=== PATIENT | male | born 1970 | race Caucasian/White ===

== ENCOUNTER 2025-06-26 21:05 | Emergency (ER) | payer MEDICAID ==
[~2025-06-26] VITALS: Ht 167.6 cm; Wt 69.2 kg
[2025-06-26 21:14] VITALS: BP 135/65; PULSE 111; RESP 15; TEMP 97.6; O2SAT 99
[2025-06-27] MEDS ORDERED: SULF1TAB49 PO (15:11)
== END 2025-06-26 21:53 | disposition left against medical advice (07) ==
LOC: ER 21:07
DX: M25.522 Pain in left elbow (principal); Z53.21 Procedure and treatment not carried out due to patient leaving prior to being seen by health care provider

== ENCOUNTER 2025-06-27 12:09 | Emergency (ER) | payer MEDICAID ==
[~2025-06-27] VITALS: Ht 152.4 cm; Wt 85.8 kg
[2025-06-27 12:14] VITALS: TEMP 98.6
--- NOTE | 2025-06-27 12:38 | Physician Documentation ---
History of Present Illness ~ Chief Complaint: Arm Pain Stated Complaint: ARM PAIN Time Seen by MD: 12:38 HPI Short male presents in the emergency department for evaluation of left arm swelling with redness x2 days. Reports that he was at the gym unit utilizing some of the weight equipment when he scratched his arm on a piece of equipment since that time his arm has become swollen and red and progressively over time. Denies fevers or any other constitutional symptoms at this time but does report that the swelling and redness are worse than they were last night and this morning. Recent denies any other significant past medical history and medications at the time Tetanus within 5 years: No Medication Reconciliation Allergies: Coded Allergies: promethazine (Verified Allergy, Unknown, 06/26/25) Review of Systems ROS As stated above in the HPI, otherwise all systems are reviewed and negative. Physical Exam Vital Signs: Temperature: 98.6, Source: Oral, Heart Rate: 101, Respiratory Rate: 16, BP: 137/92, Pulse Oximetry: 98, Weight: 85.800 Oxygen Flow Rate: 0 Physical Exam VITALS: Reviewed and as above. GENERAL: Alert, no apparent distress. 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 (Omnipaque-3 (06/27/25 12:57) Ua With Microscopic (06/27/25 13:29) Vital Signs 06/27/25 06/27/25 06/27/25 12:14 13:27 14:56 Temp 98.6 Pulse 101 84 81 Resp 16 16 16 B/P (MAP) 137/92 166/93 (117) 146/79 (101) Pulse Ox 98 96 99 O2 Flow Rate 0 0 0 Laboratory Tests Test 06/27/25 12:54 06/27/25 13:29 White Blood Count 16.1 H Red Blood Count 4.49 L Hemoglobin 14.4 Hematocrit 41.4 L Mean Corpuscular Volume 92.1 Mean Corpuscular Hemoglobin 32.0 H Mean Corpuscular Hemoglobin Concent 34.8 Red Cell Distribution Width 15.0 H Platelet Count 223 Mean Platelet Volume 7.5 Neutrophils (%) (Auto) 68.5 Lymphocytes (%) (Auto) 19.4 L Monocytes (%) (Auto) 10.6 Eosinophils (%) (Auto) 0.9 Basophils (%) (Auto) 0.6 Neutrophils # (Auto) 11.0 H Lymphocytes # (Auto) 3.1 Monocytes # (Auto) 1.7 H Eosinophils # (Auto) 0.1 Basophils # (Auto) 0.1 CBC Comment Sodium Level 133 L Potassium Level 3.6 Chloride Level 100 Carbon Dioxide Level 29.1 Anion Gap 4 L Blood Urea Nitrogen 10 Creatinine 0.84 Estimated GFR/1.73 m2 > 90 BUN/Creatinine Ratio 11.9 Glucose Level 132 H Lactic Acid Level 0.8 Calcium Level 8.3 L Total Bilirubin 0.7 Aspartate Amino Transf (AST/SGOT) 30 Alanine Aminotransferase (ALT/SGPT) 48 Alkaline Phosphatase 67 Total Protein 6.5 Albumin 3.3 L Globulin 3.2 Albumin/Globulin Ratio 1.0 L Chemistry Comments Urine Specimen Description Cln catch midstream Urine Color Yellow Urine Clarity Clear Urine pH 8.0 Urine Specific [place] 1.015 Urine Protein Negative Urine Glucose (UA) Negative Urine Ketones Negative Urine Occult Blood Small Urine Nitrite Negative Urine Bilirubin Negative Urine Urobilinogen 1.0 Urine Leukocyte Esterase Trace H Urine RBC 20-50 Urine WBC 5-10 H Urine Squamous Epithelial Cells Moderate Urine Transitional Epithelial Cells Moderate Urine Bacteria Few Volume Urine Centrifuged 10 ml Urine Comment Medical Decision Making Findings This patient presents with initial presentation of local erythema, warmth, swelling concerning for cellulitis. Sensitivity/pain to light touch around the erythematous area. No lymphangitic spread visible and no fluid pockets or fluctuance concerning for abscess noted. Low concern for osteomyelitis or DVT. No immune compromise, bullae, pain out of proportion, or rapid progression concerning for necrotizing fasciitis. Patient to be discharged home with Bactrim with follow up with their PMD return to [facility] department if there is any worsening of current symptoms or any additional concerning symptoms present. Cellulitis confirmed via CT Departure Disposition: HOME / SELF CARE / HOMELESS Impression: Primary Impression: Cellulitis Discharge Instructions: Cellulitis, Adult Additional Instructions: Residing for cellulitis of your left arm. We have prescribed 2 antibiotics placed a goes antibiotics until they are gone. And I wrote him in as needed for discomfort elevate the arm as needed. Please follow-up with your primary care provider as soon as possible. He is return to the emergency department if you have any worsening of symptoms fevers present additional swelling or any other additional concerning symptoms. Referrals: NO PRIMARY CARE PROVIDER (PCP) Prescriptions Sulfamethoxazole/Trimethoprim (Bactrim Ds Tablet) 800 Mg-160 Mg Tablet 1 TAB PO Q12H for Cellulitis for 10 Days, #20 TAB Prov: ELADIO FORTE 06/27/25 Education Educated: Patient Educated regarding: treatment, need for follow up ELADIO FORTE Jun 27, 2025 12:38
[2025-06-27] MEDS ORDERED: iohexol 300mg/ml 100ml inj. ONE (12:57)
[2025-06-27 13:01] LABS: MEAN PLATELET VOLUME 7.5 FL (7.4-10.4); RED CELL DISTRIBUTION WIDTH 15.0 % (11.5-14.5)
[2025-06-27 13:25] LABS: CREATININE 0.84 MG/DL (0.60-1.10); TOTAL CARBON DIOXIDE 29.1 MMOL/L (24-32); eCRCL 69 ML/MIN; eGFR > 90 ML/MIN
[2025-06-27 13:42] LABS: LEUKOCYTE ESTERASE ,URINE TRACE (Neg); NITRITES, URINE NEGATIVE (Neg); OCCULT BLOOD,URINE SMALL (Neg)
[2025-06-27 13:46] LABS: UA COLLECTION TYPE CLN CATCH MIDSTREAM
[2025-06-27 13:48] LABS: SQUAMOUS EPITHELIAL CELL,UR MODERATE /LPF (FEW)
--- NOTE | 2025-06-27 14:47 | RADIOLOGY REPORT ---
INDICATION: Swelling and concern for cellulitius COMPARISON: None TECHNIQUE: CT of the left upper extremity was performed without contrast. Volume transverse images we re obtained and reconstructed in multiple planes using bone and soft tissue algorithms. Radiation Dose Information: CT Dose: CTDI volume is 3.7 mGy. Dose-length product is 126.5 mGy*cm FINDINGS: The alignment is normal. The joint spaces are normal. There is no fracture, dislocation or aggressive osseous lesion. There is no joint effusion. Diffuse subcutaneous soft-tissue edema and swelling most prominent in the proximal forearm and excel analyst ior elbow. IMPRESSION: Probable cellulitis involving the posterior elbow and proximal forearm. No discrete fluid collection or abscess. No acute fracture or dislocation.
[2025-06-27 14:56] VITALS: BP 146/79; PULSE 81; RESP 16; O2SAT 99
[2025-06-27] MEDS ORDERED: SULF1TAB49 PO (15:11)
== END 2025-06-27 15:16 | disposition home or self-care (01) ==
LOC: ER 12:10
DX: L03.114 Cellulitis of left upper limb (principal)
CPT/HCPCS: 36415; 73201; 80053; 81001; 83605; 85025; 99285; Q9967

== ENCOUNTER 2025-07-04 20:28 | Emergency (ER) | payer MEDICAID ==
[~2025-07-04] VITALS: Ht 167.6 cm; Wt 83.0 kg
[~2025-07-04 20:28] MED LIST: SULF1TAB49 PO
[2025-07-05 02:01] VITALS: TEMP 97; O2SAT 98
[2025-07-05 02:19] LABS: MEAN PLATELET VOLUME 6.8 FL (7.4-10.4); RED CELL DISTRIBUTION WIDTH 14.6 % (11.5-14.5)
--- NOTE | 2025-07-05 02:26 | RADIOLOGY REPORT ---
CHEST RADIOGRAPH Indication: CP Technique: Single frontal view of the chest was obtained Comparison: None IMPRESSION: Heart appears normal in size. The lungs appear clear without focal airspace opacity, effusion, or pn eumothorax
[2025-07-05 02:30] LABS: CREATININE 1.09 MG/DL (0.60-1.10); PRO BRAIN NATRIURETIC PEPTIDE 53 PG/ML (0-125); TOTAL CARBON DIOXIDE 28.0 MMOL/L (24-32); eCRCL 68 ML/MIN; eGFR 70 ML/MIN
--- NOTE | 2025-07-05 03:54 | Physician Documentation ---
History of Present Illness ~ Chief Complaint: Chest Pain Stated Complaint: SOB Time Seen by MD: 03:36 HPI 55-year-old male presenting with chest pain. Patient states that he was on the bus from [place] to [place] yesterday afternoon around three when he started feeling this pain in his chest. He rates the pain as about a 5/10 on intensity at that time. The pain was on the left side and radiated slightly to his shoulder and up into his neck. He got concerned and came to the ED. He states that the pain has now improved in his about a 3/10. Denies any shortness of breath, nausea, vomiting or any other associated symptoms. Day of Onset: Jul 05, 2025 Medication Reconciliation Allergies: Coded Allergies: promethazine (Verified Allergy, Unknown, 07/06/25) Discontinued Medications Sulfamethoxazole/Trimethoprim (Bactrim Ds Tablet), 1 TAB PO Q12H Discontinued Reason: Auto Discontinued Physical Exam Vital Signs: Temperature: 97.0, Source: Temporal, Heart Rate: 69, Respiratory Rate: 18, BP: 149/77, Pulse Oximetry: 98, Weight: 83.000 Oxygen Flow Rate: 0 Physical Exam I have reviewed the triage vitals. CONST: Well developed and well nourished. In no acute distress HENT: Head Atraumatic EYES: Pupils are equal, round and reactive to light. Normal conjunctiva NECK: Normal range of motion. Supple. CARDIO: Normal rate and regular rhythm. No murmurs, rubs, or gallops. S1, S2. PULM/CHEST: No respiratory distress. Lungs clear to auscultation. No wheeze. Left-sided chest wall tenderness. ABD: Soft and nontender. Nondistended. Bowel sounds normal. No guarding. : Exam deferred MSK: No edema. No deformity. NEURO: Alert and oriented to person, place and time. Moving all extremities SKIN: Warm and dry. PSYCH: Normal mood and affect. Good eye contact. Progress Results/Orders Results/Orders Orders - FERNANDO CHRISTINE MD Chest,Single View (07/05/25 02:13) Monitor (07/05/25 01:58) Saline Lock (07/05/25 01:58) Oxygen (07/05/25 01:58) Completed Orders - DEHKORDI,BEHRANG H MD Chest,Single View (07/05/25 02:13) Cbc/Diff (07/05/25 01:58) BMP (07/05/25 01:58) PBNP (07/05/25 01:58) Hs Troponin I W Calculations (07/05/25 01:58) Aspirin 325mg Tablet (Aspirin 325mg Tabl (07/05/25 03:55) Nitroglycerin Sublingual Tab (Nitrostat (07/05/25 03:55) Laboratory Tests Test 07/05/25 02:04 White Blood Count 9.8 Red Blood Count 4.62 L Hemoglobin 15.0 Hematocrit 42.2 Mean Corpuscular Volume 91.4 Mean Corpuscular Hemoglobin 32.6 H Mean Corpuscular Hemoglobin Concent 35.7 Red Cell Distribution Width 14.6 H Platelet Count 336 Mean Platelet Volume 6.8 L Neutrophils (%) (Auto) 49.2 Lymphocytes (%) (Auto) 34.0 Monocytes (%) (Auto) 12.7 H Eosinophils (%) (Auto) 3.1 Basophils (%) (Auto) 1.0 Neutrophils # (Auto) 4.8 Lymphocytes # (Auto) 3.3 Monocytes # (Auto) 1.2 H Eosinophils # (Auto) 0.3 Basophils # (Auto) 0.1 CBC Comment Sodium Level 137 Potassium Level 3.6 Chloride Level 101 Carbon Dioxide Level 28.0 Anion Gap 8 Blood Urea Nitrogen 19 H Creatinine 1.09 Estimated GFR/1.73 m2 70 BUN/Creatinine Ratio 17.4 Glucose Level 145 H Calcium Level 8.9 Troponin I High Sensitivity 17 Pro-B-Type Natriuretic Peptide 53 Albumin 3.8 Chemistry Comments EKG/XRAY/CT/US/VASC/MRI EKG : Additional Comment EKG added by me indicating sinus tachycardia at a rate of 102 beats per minute, normal axis, no ischemia Chest X-Ray : Additional Comments CHEST RADIOGRAPH Indication: CP Technique: Single frontal view of the chest was obtained Comparison: None IMPRESSION: Heart appears normal in size. The lungs appear clear without focal airspace opacity, effusion, or pneumothorax Heart Score: Heart Score Response (Comments) Value History Slightly Suspicious 0 EKG Normal 0 Age 45-64 1 Risk Factors 1 or 2 risk factors 1 Troponin Normal limit 0 Total 2 Medical Decision Making Differential Dx:Considerations: Include: angina, aortic dissection, chest wall pain, cholelithiasis, CHF, costochondritis, esophageal reflux/spasm, gastritis, myocardial infarction, pericarditis, pleuritis, pneumonia, pneumothorax, pulmonary embolus Additional Information 55-year-old male presenting with chest pain. His EKG is normal. Was unremarkable. It has already been greater than 9 hours since his chest pain started and he has negative troponins thus he is ruled out of ACS already. However I did inform the patient that we can not rule out underlying coronary artery disease. His pain is reproducible and does not have the typical characteristics of cardiac chest pain. He is tender to palpation on his chest wall and I suspect that his symptoms are more related to costochondritis. Regardless, I did inform him that he does need follow up with the primary care physician and potentially a elevator examiner for further workup should his chest pains return. Chest pain resolved while in the ED after the patient was given some nitro. He will be discharged home with PCP follow up. Return to the ED with any acutely worsening symptoms. Departure Disposition: 01 HOME / SELF CARE / HOMELESS Impression: Primary Impression: Costochondritis Condition: Improved Discharge Instructions: Costochondritis Additional Instructions: Please monitor your symptoms for recurrence. Please establish care with a primary care physician for further evaluation of chest pain especially if it continues to return. You may take Tylenol or ibuprofen as needed for your chest pains should they recur. Return to the ED with any acutely worsening symptoms. Referrals: NO PRIMARY CARE PROVIDER (PCP) Signature Scribe Signature: 1 Attestation: 1 FERNANDO CHRISTINE MD Jul 05, 2025 03:54
[2025-07-05 04:39] VITALS: BP 105/67; PULSE 94; RESP 14
--- NOTE | 2025-07-05 06:12 | ELECTROCARDIOGRAPH REPORT ---
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
== END 2025-07-05 06:10 | disposition home or self-care (01) ==
LOC: ER 20:29
DX: M94.0 Chondrocostal junction syndrome [Tietze] (principal); Z79.899 Other long term (current) drug therapy
CPT/HCPCS: 36415; 71045; 80048; 83880; 84484; 85025; 93005; 99285

== ENCOUNTER 2025-07-06 17:15 | Emergency (ER) | payer MEDICAID ==
[~2025-07-06] VITALS: Ht 167.6 cm; Wt 83.5 kg
[2025-07-06 18:00] VITALS: BP 126/80; PULSE 82; RESP 16; TEMP 97.6; O2SAT 97
--- NOTE | 2025-07-06 18:25 | Physician Documentation ---
HPI ~ General Chief Complaint: Medication Refill Stated Complaint: "I STILL NEED MY MEDS FOR MY ADHD" History of Present Illness HPI Comments Patient seen as part of his medical screening exam in triage. He is requesting a prescription for Adderall. He states he also was given a prescription when he was here a couple days ago however it never made it to the pharmacy. Stated he needed nitroglycerin. He states he needs other medications but is unsure what they are or what they are for. No chest pain, pressure. No shortness a breath. No dizziness, lightheadedness or syncope. Was asked, but otherwise denies review of systems currently. Medication Reconciliation Allergies: Coded Allergies: promethazine (Verified Allergy, Unknown, 07/06/25) Discontinued Medications Sulfamethoxazole/Trimethoprim (Bactrim Ds Tablet), 1 TAB PO Q12H Discontinued Reason: Auto Discontinued Physical Exam Physical Exam Vital Signs: Temperature: 97.6, Source: Temporal, Heart Rate: 82, Respiratory Rate: 16, BP: 126/80, Pulse Oximetry: 97, Weight: 83.450 Oxygen Flow Rate: 0 Pulse Oximetry Reflects: adequate oxygenation Physical Exam Medical screening evaluation: Awake, alert, oriented. No apparent distress. Lungs clear to auscultation bilaterally. Cardiac: S1-S2. No murmur. Progress Results/Orders Results/Orders Vital Signs 07/06/25 18:00 Temp 97.6 Pulse 82 Resp 16 B/P (MAP) 126/80 Pulse Ox 97 O2 Flow Rate 0 Medical Decision Making Findings Patient is seen as part with medical screening exam: Patient presents for medication refill for Adderall. He was educated that we can not per scribed this in the emergency department and he needs to follow up with his primary care provider. He then requested prescriptions that were sent in a couple days ago. Chart was reviewed and there were no prescriptions given during his last ER visit for costochondritis. Departure Disposition: LEFT AWOL/ELOPED Impression: Primary Impression: General medical exam Referrals: NO PRIMARY CARE PROVIDER (PCP) Signature Scribe Signature: No scribe Attestation: The note accurately reflects work and decisions made by me.Bernadette Reynoso NP 07/08/25 15:36 This note was created with the assistance of voice recognition software whereby errors in grammar, syntax, and/or spelling may have occurred despite active proofreading efforts by the author. Please do not hesitate to contact the provider for clarification or for questions regarding the content of this document. BERNADETTE AQUINO NP Jul 06, 2025 18:25
== END 2025-07-06 20:36 | disposition left against medical advice (07) ==
LOC: ER 17:15
DX: Z00.8 Encounter for other general examination (principal); Z76.0 Encounter for issue of repeat prescription
CPT/HCPCS: 99281

== ENCOUNTER 2025-07-29 20:44 | Emergency (ER) | payer MEDICAID ==
[~2025-07-29] VITALS: Ht 157.5 cm; Wt 85.9 kg
[2025-07-29 21:52] VITALS: BP 128/78; PULSE 78; RESP 18; TEMP 97.6; O2SAT 98
--- NOTE | 2025-07-29 22:08 | Physician Documentation ---
History of Present Illness ~ Chief Complaint: Elbow pain Stated Complaint: INFECTION ON ELBOW Time Seen by MD: 21:38 HPI This is a 55-year-old male who presents with concern for an infection to his left elbow, patient reports that he was treated for a skin infection to the e lbow with antibiotics in the area remains slightly swollen and tender, though significantly improved. Patient reports no fevers. Patient additionally is requesting records from his previous visit. Patient reports no other acute symptoms or concerns. Tetanus within 5 years: No Medication Reconciliation Allergies: Coded Allergies: promethazine (Verified Allergy, Unknown, 07/06/25) Scheduled Glycerin/Propylene Glycol (Artificial Tears Drops), 1 DROP EACHEYE Q6H Scheduled PRN albuterol inhaler (Pro-Air Inhaler), 1-2 PUFFS PO Q4H PRN for shortness of breath Past Medical History Past Medical History: No Pertinent History Review of Systems ROS As stated above in the HPI, otherwise all systems are reviewed and negative. Physical Exam Vital Signs: Temperature: 97.6, Heart Rate: 78, Respiratory Rate: 18, BP: 128/78, Pulse Oximetry: 98, Weight: 85.900 Oxygen Flow Rate: 0 Physical Exam VITALS: Reviewed and as above. GENERAL: Alert, nontoxic appearing, no apparent distress. RESPIRATORY: No increased work of breathing, no respiratory distress, speaking in full clear sentences MUSCULOSKELETAL: Left posterior elbow minimal swelling and erythema Progress Results/Orders Results/Orders Vital Signs 07/29/25 07/29/25 20:58 21:52 Temp 97.6 97.6 Pulse 97 78 Resp 16 18 B/P (MAP) 113/71 128/78 Pulse Ox 97 98 O2 Flow Rate 0 Medical Decision Making Findings MSE performed in triage and patient placed in emergency department room to await more detailed exam, patient was well-appearing and moving left elbow without difficulty or evidence of significant pain, it is reassuring patient reported no systemic symptoms and reported significant improvement in pain and swelling to the left elbow. Based on movement without significant pain of the elbow and no significant erythema or swelling to the elbow I have low concern for systemic infection or septic joint. Prior to more detailed examination of the elbow patient decided to leave the emergency department per registration staff. As I have low suspicion for serious infection of the elbow patient was not call to return to the emergency department. Departure Disposition: 07 LEFT AWOL/ELOPED Impression: Primary Impression: Elbow pain, left Referrals: NO PRIMARY CARE PROVIDER (PCP) Signature Scribe Signature: No scribe Attestation: The note accurately reflects work and decisions made by me.DENIS Penaloza 07/31/25 15:16 LANA ROPER Jul 29, 2025 22:08
[2025-07-30] MEDS ORDERED: ALBU8HFA PO (21:13)
[2025-07-30] MEDS ORDERED: GLYC15DR4 EACHEYE (21:13)
== END 2025-07-29 21:54 | disposition left against medical advice (07) ==
LOC: ER 20:44
DX: M25.522 Pain in left elbow (principal); Z79.899 Other long term (current) drug therapy
CPT/HCPCS: 99281; 99282

== ENCOUNTER 2025-07-30 19:54 | Emergency (ER) | payer MEDICAID ==
[~2025-07-30] VITALS: Ht 160 cm; Wt 84.5 kg
--- NOTE | 2025-07-30 20:34 | Physician Documentation ---
History of Present Illness ~ Chief Complaint: Hypertension Stated Complaint: HIGH BP Time Seen by MD: 20:50 HPI This is a 55-year-old male who presents requesting a blood pressure check due to concern for high blood pressure, additionally patient is requesting eyedrops for itchy eyes and a refill of his albuterol inhaler previously prescribed for asthma. Patient reports no shortness of breath or wheezing. Medication Reconciliation Allergies: Coded Allergies: promethazine (Verified Allergy, Unknown, 07/06/25) Scheduled Glycerin/Propylene Glycol (Artificial Tears Drops), 1 DROP EACHEYE Q6H Scheduled PRN albuterol inhaler (Pro-Air Inhaler), 1-2 PUFFS PO Q4H PRN for shortness of breath Past Medical History Past Medical History: Hypertension, Asthma Review of Systems ROS As stated above in the HPI, otherwise all systems are reviewed and negative. Physical Exam Vital Signs: Temperature: 98.3, Source: Temporal, Heart Rate: 106, Respiratory Rate: 16, BP: 158/92, Pulse Oximetry: 96, Weight: 84.550 Oxygen Flow Rate: 0 Physical Exam VITALS: Reviewed and as above. GENERAL: Alert, nontoxic appearing, no apparent distress. HEENT: PERRLA, EOMI Conjunctiva minimally injected RESPIRATORY: No increased work of breathing, no respiratory distress, speaking in full clear sentences, clear lung sounds in all niño CV: Regular rate and rhythm no murmur Progress Results/Orders Results/Orders Vital Signs 07/30/25 07/30/25 20:14 21:42 Temp 98.3 98.6 Pulse 106 101 Resp 16 18 B/P (MAP) 158/92 152/89 Pulse Ox 96 99 O2 Flow Rate 0 Medical Decision Making Findings This is a 55-year-old male presented requesting a blood pressure check to concern for high blood pressure hand requests for eyedrops and a refill of albuterol inhaler. Patient's blood pressure was not significantly elevated to constitute a hypertensive emergency and as patient reports no other acute symptoms or concerns I have very low concern for hypertensive emergency. Patien t advised to follow up with the primary care provider for management of elevated blood pressure. Physical exam demonstrated mildly injected conjunctiva consistent with dry eyes or allergic conjunctivitis, patient provided lubricating eyedrops for comfort as there was no evidence of infective process. Patient's asthma inhaler refilled though patient advised to follow up with the [facility] care provider for further management of asthma medications. Patient provided home care instructions, return to care precautions, and follow up instructions which he verbalized understanding of. Differential Dx:Considerations: Include HTN, essential, Include HTN, accelerated, Include HTN, malignant, Include medication withdrawal, Include other (Asthma exacerbation, bacterial conjunctivitis, viral conjunctivitis, eye foreign body) Departure Time of Disposition: 21:14 Disposition: HOME / SELF CARE / HOMELESS Impression: Primary Impression: Hypertension Qualified Codes: I10 - Essential (primary) hypertension Additional Impressions: Eye irritation History of asthma Condition: Stable Discharge Instructions: Chemical Conjunctivitis, Adult, [id number], Hypertension, Adult, [id number] Additional Instructions: Please use the prescribed artificial tears for the irritation to your eyes, please return to the emergency department if your symptoms worsen. While your blood pressure is elevated is not to a dangerous level currently, you should follow up with the primary care provider for management of your high blood pressure. I have represcribed your albuterol rescue inhaler. Please follow up with the primary care provider to manage medications for your chronic conditio ns. Please follow up with your primary care provider in the next few days. Please return to the emergency department for any new or worsening concerning symptoms. Referrals: NO PRIMARY CARE PROVIDER (PCP) Prescriptions albuterol inhaler (Pro-Air Inhaler) 8.5 Gm Inhaler 1-2 PUFFS PO Q4H PRN for shortness of breath, #1 INH Prov: LANA ROPER 07/30/25 Glycerin/Propylene Glycol (Artificial Tears Drops) 0.3 %-1 % Drops 1 DROP EACHEYE Q6H for 7 Days, #5 ML 0 Refills Prov: LANA ROPER 07/30/25 Education Educated: Patient Educated regarding: diagnosis, treatment, prognosis, need for follow up Signature Scribe Signature: No scribe Attestation: The note accurately reflects work and decisions made by me.DENIS Penaloza 07/31/25 16:44 LANA ROPER Jul 30, 2025 20:34
[2025-07-30] MEDS ORDERED: GLYC15DR4 EACHEYE (21:13)
[2025-07-30] MEDS ORDERED: ALBU8HFA PO (21:13)
[2025-07-30 21:42] VITALS: BP 152/89; PULSE 101; RESP 18; TEMP 98.6; O2SAT 99
== END 2025-07-30 21:43 | disposition home or self-care (01) ==
LOC: ER 19:54
DX: I10 Essential (primary) hypertension (principal); J45.909 Unspecified asthma, uncomplicated; H57.89 Other specified disorders of eye and adnexa; Z88.8 Allergy status to other drugs, medicaments and biological substances; Z79.899 Other long term (current) drug therapy
CPT/HCPCS: 99281; 99282

== ENCOUNTER 2025-08-19 01:06 | Emergency (ER) | payer MEDICAID ==
[~2025-08-19] VITALS: Ht 167.6 cm; Wt 84.1 kg
[~2025-08-19 01:06] MED LIST changes: +ALBU8HFA PO; +GLYC15DR4 EACHEYE; -SULF1TAB49 PO
--- NOTE | 2025-08-19 01:21 | ELECTROCARDIOGRAPH REPORT ---
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
--- NOTE | 2025-08-19 01:45 | RADIOLOGY REPORT ---
CHEST RADIOGRAPH Indication: CP Technique: Single frontal view of the chest was obtained COMPARISON: DI CHEST,SINGLE VIEW on DOS: 07/05/25 FINDINGS: Lungs and pleural spaces are clear. Cardiac silhouette and [place] are within normal limits. Bones and soft tissues demonstrate no significant abnormality. IMPRESSION: 1. No acute disease.
--- NOTE | 2025-08-19 03:33 | Physician Documentation ---
History of Present Illness General Chief Complaint: Rib pain Stated Complaint: RIB PAIN Time Seen by MD: 02:19 Mode of Arrival: Ambulatory History of Present Illness Initial Comments The patient is a 55-year-old male complaining of right-sided chest wall pain patient states he fell and went a railing broke yesterday fell he feels like he felt about 10 ft striking the right side of his chest. The patient denies any significant shortness of breath complains of pain with deep inspiration. He states his pain is seven to 8/10. Patient denies any other injuries. Patient denies any loss of consciousness. Patient states he has a history of hypertension. He did not take his hypertension medicine today. Medication Reconciliation Allergies: Coded Allergies: promethazine (Verified Allergy, Unknown, 07/06/25) Scheduled Fluoxetine Hcl (Prozac), 1 CAP PO DAILY, (Reported) Glycerin/Propylene Glycol (Artificial Tears Drops), 1 DROP EACHEYE Q6H Lisinopril (Lisinopril), 1 TAB PO DAILY, (Reported) Scheduled PRN albuterol inhaler (Pro-Air Inhaler), 1-2 PUFFS PO Q4H PRN for shortness of breath Discontinued Medications Fluoxetine Hcl (Fluoxetine Hcl), (Reported) Discontinued Reason: patient no longer taking Fluoxetine Hcl (Fluoxetine Hcl), 1 CAP DAILY, (Reported) Discontinued Reason: patient no longer taking Past Medical History Past Medical History: Hypertension, Asthma Review of Systems All Other Systems at this time: Reviewed and Negative Physical Exam Physical Exam Vital Signs: Temperature: 98.6, Source: Oral, Heart Rate: 62, Respiratory Rate: 16, BP: 177/97, Pulse Oximetry: 96, Weight: 84.090 Oxygen Flow Rate: 0 Physical Exam VITALS: Reviewed and as above. GENERAL: Alert, no apparent distress. HEENT: Normocephalic, atraumatic, PERRL, EOMI, dry mucosa, no erythema RESPIRATORY: Lungs clear, normal breath sounds, no respiratory distress. CHEST: No accessory muscle use, no retractions CV: Regular rate, rhythm, no edema, no murmur, No: JVD GI: Soft, non-tender, bowels sounds present, no rebound, guarding, or rigidity BACK: No CVA tenderness, or swelling MUSCULOSKELETAL: Tender right mid clavicular line to the anterior axillary line in the lower anterior ribs proximally T8 and T9 no crepitus SKIN: Warm and dry, no rash NEURO: Oriented x4, No motor or sensory deficit PSYCH: Normal mood and affect, no agitation Progress Results/Orders Results/Orders Orders - OHJORGE ALBERTO AC MD Chest,Single View (08/19/25 01:16) Ribs,Unilat (08/19/25 ) Completed Orders - JORGE ALBERTO STRINGER MD Chest,Single View (08/19/25 01:16) Electrocardiogram (08/19/25 01:16) Ribs,Unilat (08/19/25 ) Ketorolac Trometh 15mg/Ml Vial (Toradol (08/19/25 03:40) Vital Signs 08/19/25 08/19/25 08/19/25 08/19/25 01:09 01:38 03:59 04:02 Temp 98.6 98.6 Pulse 62 67 Resp 14 16 16 14 B/P (MAP) 177/97 145/95 (112) Pulse Ox 96 96 O2 Flow Rate 0 0 08/19/25 05:24 Temp 98.6 Pulse 76 Resp 14 B/P (MAP) 132/82 Pulse Ox 97 Medical Decision Making Findings The patient is a 55-year-old male who complains of right-sided chest wall pain after a fall. The patient has a no neck or back pain or tenderness on exam the patient had some chest wall tenderness without any ecchymosis or swelling to the lower right thoracic anterior chest wall. The patient's plain film x-ray was interpreted by me as showing normal cardiac silhouette normal mediastinum and normal-appearing bony structures. I interpreted as x-ray has been a normal x- ray. I have also reviewed the rib films as well as the radiologist's interpretation of the chest x-ray. The patient was given a shot of Toradol he there was no evident rib fractures. The patient is comfortable and hemodynamically stable. The patient will be discharged. The patient's pulse oximetry was interpreted as normal and adequate. Departure Impression: Primary Impression: Chest wall contusion Qualified Codes: S20.211A - Contusion of right front wall of thorax, initial encounter Discharge Instructions: Rib Contusion Referrals: NO PRIMARY CARE PROVIDER (PCP) Signature Scribe Signature: no scribe Attestation: The note accurately reflects work and decisions made by me.Jorge Alberto Stringer MD 08/21/25 09:50 JORGE ALBERTO STRINGER MD Aug 19, 2025 03:33
[2025-08-19] MEDS: ketorolac trometh 15mg/ml vial 15 MG/ML ML IM ONE (03:59)
--- NOTE | 2025-08-19 05:07 | RADIOLOGY REPORT ---
JOSEPH BEREA EXAMINATION: DI RIBS,UNILAT INDICATION: fall RT SIDED RIB PAIN COMPARISON: DI CHEST,SINGLE VIEW on DOS: 08/19/25, DI CHEST,SINGLE VIEW on DOS: 07/05/25 TECHNIQUE: 3 views of the right ribs FINDINGS: No focal consolidation, pleural effusion or significant pneumothorax. Normal cardiomediastinal silhouette. No displaced right rib fracture. IMPRESSION: 1. No acute cardiopulmonary disease. 2. No displaced right rib fracture.
[2025-08-19 05:24] VITALS: BP 132/82; PULSE 76; RESP 14; TEMP 98.6; O2SAT 97
[2025-08-20] MEDS ORDERED: LISI5TAB22 PO (13:39)
[2025-08-20] MEDS ORDERED: FLUO-81 ×2 (13:39)
[2025-08-20] MEDS ORDERED: FLUO10CA28 PO (13:41)
== END 2025-08-19 05:26 | disposition home or self-care (01) ==
LOC: ER 01:07
DX: S20.211A Contusion of right front wall of thorax, initial encounter (principal); I10 Essential (primary) hypertension; J45.909 Unspecified asthma, uncomplicated; Z79.899 Other long term (current) drug therapy; W18.00XA Striking against unspecified object with subsequent fall, initial encounter; Y93.89 Activity, other specified; Y92.89 Other specified places as the place of occurrence of the external cause; Y99.8 Other external cause status
CPT/HCPCS: 71045; 71100; 93005; 96372; 99284; J1885

== ENCOUNTER 2025-08-19 21:55 | Emergency (ER) | payer MEDICAID ==
[2025-08-20] MEDS ORDERED: LISI5TAB22 PO (13:39)
[2025-08-20] MEDS ORDERED: FLUO-81 ×2 (13:39)
[2025-08-20] MEDS ORDERED: FLUO10CA28 PO (13:41)
== END 2025-08-19 23:30 | disposition left against medical advice (07) ==
LOC: ER 21:55
DX: Z00.00 Encounter for general adult medical examination without abnormal findings (principal); Z53.21 Procedure and treatment not carried out due to patient leaving prior to being seen by health care provider; Z88.8 Allergy status to other drugs, medicaments and biological substances

== ENCOUNTER 2025-08-20 11:14 | Inpatient (IN) | payer MEDICAID ==
[~2025-08-20] VITALS: Ht 167.6 cm; Wt 84.7 kg
--- NOTE | 2025-08-20 11:38 | Physician Documentation ---
History of Present Illness ~ Chief Complaint: Leg Pain Stated Complaint: LEG PAIN Time Seen by MD: 12:21 HPI Patient 55-year-old male that presents to the emergency department for evaluation of a wound to the anterior portion of his lower right extremity x3 days. Wound to the right lower extremity presents with erythema edema and purulent drainage. Patient was seen here approximately a month ago for an abscess on his left arm an I and D performed in antibiotics prescribed at that time. Patient denies fevers but does report chills this morning. Tetanus witin 5 years: Yes Medication Reconciliation Allergies: Coded Allergies: promethazine (Verified Allergy, Unknown, 07/06/25) Scheduled Glycerin/Propylene Glycol (Artificial Tears Drops), 1 DROP EACHEYE Q6H Scheduled PRN albuterol inhaler (Pro-Air Inhaler), 1-2 PUFFS PO Q4H PRN for shortness of breath Past Medical History Past Medical History: Hypertension, Asthma Physical Exam Vital Signs: Temperature: 100.1, Heart Rate: 118, Respiratory Rate: 18, BP: 178/104, Pulse Oximetry: 97, Weight: 84.700 Oxygen Flow Rate: 0 Progress Results/Orders Results/Orders Orders - ELADIO FORTE CARDIAC CATH TECH Cbc/Diff (08/20/25 12:18) CMP (08/20/25 12:18) LA (08/20/25 12:18) Cult (Aer) Routine C&S+Gram St (08/20/25 12:18) Vital Signs 08/20/25 11:32 Temp 100.1 Pulse 118 Resp 18 B/P (MAP) 178/104 Pulse Ox 97 O2 Flow Rate 0 Laboratory Tests Test 08/20/25 12:32 White Blood Count 15.1 H Red Blood Count 4.59 L Hemoglobin 14.4 Hematocrit 42.2 Mean Corpuscular Volume 91.9 Mean Corpuscular Hemoglobin 31.4 H Mean Corpuscular Hemoglobin Concent 34.1 Red Cell Distribution Width 13.8 Platelet Count 210 Mean Platelet Volume 7.7 Neutrophils (%) (Auto) 76.7 H Lymphocytes (%) (Auto) 11.7 L Monocytes (%) (Auto) 10.2 Eosinophils (%) (Auto) 0.6 Basophils (%) (Auto) 0.8 Neutrophils # (Auto) 11.6 H Lymphocytes # (Auto) 1.8 Monocytes # (Auto) 1.5 H Eosinophils # (Auto) 0.1 Basophils # (Auto) 0.1 CBC Comment Chemistry Comments Departure Referrals: NO PRIMARY CARE PROVIDER (PCP) ELADIO FORTE CARDIAC CATH TECH Aug 20, 2025 11:38
[2025-08-20 12:41] LABS: MEAN PLATELET VOLUME 7.7 FL (7.4-10.4); RED CELL DISTRIBUTION WIDTH 13.8 % (11.5-14.5)
[2025-08-20 12:58] LABS: CREATININE 0.80 MG/DL (0.60-1.10); TOTAL CARBON DIOXIDE 24.4 MMOL/L (24-32); eCRCL 93 ML/MIN; eGFR > 90 ML/MIN
[2025-08-20] MEDS: HYDROcodone/acetaminophen 5mg/325mg tablet PO ONE (13:21)
[2025-08-20] MEDS: ibuprofen tablet 400 MG TABLET PO ONE (13:21)
[2025-08-20] MEDS ORDERED: FLUO-81 ×2 (13:39)
[2025-08-20] MEDS ORDERED: LISI5TAB22 PO (13:39)
[2025-08-20] MEDS ORDERED: FLUO10CA28 PO (13:41)
[2025-08-20] MEDS: sulfamethoxazole/trimethoprim DS (800/160mg) tablet PO ONE (13:48)
--- NOTE | 2025-08-20 14:29 | RADIOLOGY REPORT ---
EXAM: DI CHEST,SINGLE VIEW Indication: elevated WBC Technique: Single frontal view of the chest was obtained Comparison: DI RIBS,UNILAT on DOS: 08/19/25, DI CHEST,SINGLE VIEW on DOS: 08/19/25, DI CHEST,SINGLE VIEW on DOS: 07/05/25 FINDINGS: Lines and Tubes: None Lungs: No focal consolidation. Pleura: No effusion. No pneumothorax. Cardiomediastinal contours: Unremarkable Bones: No acute osseous abnormality. IMPRESSION: No acute cardiopulmonary disease.
[2025-08-20] MEDS ORDERED: mag hydrox/Alum hydrox/simeth 30ml oral suspension PO PRN (14:35)
[2025-08-20] MEDS ORDERED: magnesium sulf-water 4G/100mL 100 ML IV PRN (14:35)
[2025-08-20] MEDS ORDERED: potassium Cl 20 mEq SR tablet PO PRN (14:35)
[2025-08-20] MEDS ORDERED: ondansetron/PF 4mg/2ml inj IV PRN (14:35)
[2025-08-20] MEDS ORDERED: magnesium Cl slow-release 64mg tablet PO PRN (14:35)
[2025-08-20] MEDS ORDERED: magnesium sulf-water 2g/50mL 50 ML IV PRN (14:35)
[2025-08-20] MEDS ORDERED: potassium Cl 40MEQ/1/2NS 520ml 520 ML IV PRN (14:35)
[2025-08-20] MEDS: normal saline 1000ml 1,000 ML IV ONE (14:46)
[2025-08-20] MEDS: vancomycin/NS 1 GM ADD-VANTAGE 250 ML IV ONE (14:48)
[2025-08-20 15:03] LABS: PHOSPHORUS 3.2 MG/DL (2.3-4.5); PRO BRAIN NATRIURETIC PEPTIDE 137 PG/ML (0-125)
[2025-08-20 16:43] VITALS: BP 127/85; PULSE 98; RESP 16; TEMP 98.8; O2SAT 98
--- NOTE | 2025-08-20 17:09 | HISTORY AND PHYSICAL-Residence ---
History & Physical Providers to CC Resident Creating Document: JOHN LUGO, RES ~ History of Present Illness Reason for Admit\Complaint: Right lower extremity wound History of Present Illness A 55 years old male with past medical history of incision and drainage of left arm abscess a month ago presents to ER with wound on right lower leg. Patient stated that it started as a small wound when he hit with table in the [employer] 3 days back and it slowly progressed to large wound of size 3 x 5 cm with pus coming from wound since yesterday. Patient complaints of fever, chills from this morning. He also reports mild right-sided upper quadrant abdominal pain and chest discomfort with deep inspiration states that he fell from the railing broke yesterday.. Patient denies swelling of legs, shortness of breath, lightheadedness, dizziness etc. patient stated that he took tetanus 3 years back. Allergies: Coded Allergies: promethazine (Verified Allergy, Unknown, 07/06/25) Home Medications Home Medications Active Pro-Air Inhaler (Albuterol) 8.5 Gm Inhaler 1-2 Puffs PO Q4H PRN Artificial Tears Drops (Glycerin/Propylene Glycol) 0.3 %-1 % Drops 1 Drop EACHEYE Q6H 7 Days Reported Prozac (Fluoxetine HCl) 10 Mg Capsule 1 Cap PO DAILY 30 Days Lisinopril 5 Mg Tablet 1 Tab PO DAILY Past Medical History Past Medical History Hypertension Asthma Past Surgical History Surgical History Comment Abdomen and spine surgery. Past Social History Social History Comment He drinks beers frequently like to 2-3 times a week. He smokes 5 cigarettes per day from many years. He smokes vape. She smokes marijuana occasionally like 4-5 times a month. He lives at [place]. ROS ROS Constitutional: Reports fever and chills, no dizziness, weight gain or loss, night sweats Eyes: No pain, erythema, discharge, blurring of vision ENT: No sore throat, epistaxis, tinnitus Cardiovascular:No chest pain, palpitations, syncope, lower extremity edema, paroxysmal nocturnal dyspnea Respiratory: No Shortness of breath and cough, No hemoptysis. Gastrointestinal: Reports Abdominal pain, vomiting,nausea and melena. Normal appetite. No constipation,diarrhea, hematemesis, Musculoskeletal: No swelling or edema of extremities. Integumentary: No change in skin, hair, nails. No swelling, bruising, abrasions Neurologic: No weakness,No headache, neck pain, numbness or tingling of the extremities, Psychiatric: No delusions, depression, loss of interest in normal activity or change in sleep pattern, hallucinations, suicidal ideations Endocrine: No fatigue, no weakness. polydipsia, polyuria, change in appetite, heat or cold intolerance, sweating, dry skin Hematological: No bleeding, petechiae, bruising Allergies: No asthma or urticaria Exam Vitals: Vital Signs Date Time Temp Pulse Resp B/P (MAP) Pulse Ox O2 Delivery O2 Flow Rate FiO2 08/20/25 16:43 98.8 98 16 127/85 (99) 98 Room Air 08/20/25 16:07 0 General: Awake , alert and oriented to time,place, person,not in distress HEENT: Atraumatic, normocephalic, PERRLA, EOMI, anicteric sclera ; pink conjunctiva, moist mucos membranes Neck: Trachea midline. Supple, normal range of motion, no JVD, no lymphadenopathy Chest and Respiratory: Equal breath sounds bilaterally, no tachypnea, wheezing, ronchi,rubs .Chest wall is symmetric and without deformity. Cardiac: S1, S2 heard,Regular rate and rhythm, no murmurs heard. Abdomen: Soft, mild right upper quadrant tenderness, No guarding or rigidity, Neri's sign negative. normal bowel sounds x4 quadrant, no hepatosplenomegaly MSK: Range of motion of all extremities are normal. There is no joint pain or joint swelling or joint erythema. There is no muscle pain. Tenderness in right lower extremity. 3 x5 cm wound with yellow discharge on right leg. Extremities: warm, well-perfused, No cyanosis, clubbing, 2+ pulses felt Neurological: Speech is clear, alert, and oriented x 4. No sensory or motor deficits. Cranial nerves II-XII intact. Skin: Warm and dry Psychiatry: Affect and mood are normal Diagnostic Data Last Recorded Lab Results: 08/20/25 1232 08/20/25 1232 Advance Care Planning Advanced Care plannin - 30 Minutes Additional Plan Right Lower extremity wound with drainage of pus CBC showed elevated leukocytosis with neutrophil predominance Lactic acid,procalcitonin and ESR are normal CRP is elevated 15.03 Plan: Started on Unasyn 1.5 gm q.6 H . At this time, there is no clinical suspicion for Pseudomonas or MRSA infection. Wound care was consulted. Follow up with ultrasound abdomen in view of elevated AST, ALT. Code status: Full code DVT prophylaxis : Heparin Nutrition: Regular Line/tube: PIV Disposition: Admitted to ortho. Wound Care was consulted Resident attestation The above note has been reviewed and supervised by a senior resident PGY2/PGY3 Patient was seen, examined and discussed with the attending physician Roopa Lugo MD Internal Medicine Resident, PGY 1 Date of Service: Aug 20, 2025 Billing Provider: FIONA HOLLIS MD Common Visit Codes: 49337-[id number] INP/OBS CARE (HIGH) Secondary Visit Codes: 30187-[id number] CARE PLAN 30 MINUTES JOHN LUGO, RES Aug 20, 2025 17:09 FIONA HOLLIS MD Aug 22, 2025 05:41
[2025-08-20] MEDS ORDERED: ampicill/sulbac 1.5gm/NS 100ml 100 ML IV SCH (20:00)
[2025-08-20] MEDS: K and/or MAG REPLACEMENT MC SCH (20:00)
[2025-08-20 20:20] VITALS: BP 142/66; PULSE 87; RESP 16; TEMP 98.9; O2SAT 96
[2025-08-20 20:30] VITALS: RESP 16; O2SAT 96
[2025-08-20] MEDS: docusate sod 100mg capsule PO SCH (21:17)
[2025-08-20] MEDS: magnesium hydroxide 30ml (MOM) UD suspension PO PRN (21:18)
[2025-08-20] MEDS: heparin, porcine 5000 units/ml vial SQ SCH (21:19)
[2025-08-20] MEDS: potassium Cl 20 mEq SR tablet PO PRN (21:28)
[2025-08-20 22:00] VITALS: BP 139/77; PULSE 68; RESP 23; TEMP 98.2; O2SAT 96
[2025-08-21] MEDS: VANCOmycin 1250MG/NS 250ml Bag 250 ML IV ONE (02:56)
[2025-08-21] MEDS: HYDROcodone/acetaminophen 10/325mg tab PO PRN (03:28)
[2025-08-21] MEDS: VANCOMYCIN/H2O 1.25G/250mL PB 250 ML IV SCH (03:28)
[2025-08-21 04:46] LABS: LEUKOCYTE ESTERASE ,URINE NEGATIVE (Neg); NITRITES, URINE NEGATIVE (Neg); OCCULT BLOOD,URINE SMALL (Neg); UA COLLECTION TYPE CLN CATCH MIDSTREAM
[2025-08-21 04:51] LABS: SQUAMOUS EPITHELIAL CELL,UR FEW /LPF (FEW)
[2025-08-21 04:52] LABS: MUCUS STRANDS MODERATE /LPF (Neg)
[2025-08-21 04:53] LABS: AMORPHOUS URATES 1+
[2025-08-21 04:59] LABS: MEAN PLATELET VOLUME 7.9 FL (7.4-10.4); RED CELL DISTRIBUTION WIDTH 14.1 % (11.5-14.5)
[2025-08-21 05:22] LABS: CHOL/HDL RATIO 2.9 (0.00-4.99); CREATININE 0.75 MG/DL (0.60-1.10); LDL CHOLESTEROL 64 MG/DL (50-100); TOTAL CARBON DIOXIDE 30.9 MMOL/L (24-32); eCRCL 99 ML/MIN; eGFR > 90 ML/MIN
[2025-08-21 06:00] VITALS: BP 138/82; PULSE 57; RESP 16; TEMP 98.1; O2SAT 98
[2025-08-21 06:01] LABS: URINE AMPHETAMINE SCREEN POSITIVE (Neg); URINE BARBITUATE SCREEN NEGATIVE (Neg); URINE BENZODIAZEPINES SCREEN NEGATIVE (Neg); URINE CANNABINOID SCREEN POSITIVE (Neg); URINE COCAINE SCREEN NEGATIVE (Neg); URINE METHADONE SCREEN NEGATIVE (Neg); URINE OPIATE SCREEN POSITIVE (Neg); URINE PHENCYCLIDINE SCREEN NEGATIVE (Neg)
[2025-08-21 08:35] VITALS: RESP 16; O2SAT 95
[2025-08-21 10:00] VITALS: BP 138/74; PULSE 69; RESP 19; TEMP 97.5; O2SAT 98
--- NOTE | 2025-08-21 11:12 | RADIOLOGY REPORT ---
INDICATION: Right upper quadrant pain and elevated liver function tests TECHNIQUE: Multiple real-time sonographic images were obtained of the right upper quadrant. COMPARISON: None FINDINGS: Evaluation limited due to obscuration from bowel gas and body habitus. The liver demonstrates homogenous echotexture without focal mass lesions. The liver measures 15 cm. There is no intrahepatic or extrahepatic ductal dilatation. The common duct measures 4 mm. The gallbladder is without evidence of stone or sludge. The gallbladder wall measures 2 mm and is within normal limits. The right kidney measures 11.3 cm. The right kidney is normal in contour, size, and shape. The echogenicity is normal. There is no hydronephrosis. The pancreas is not well visualized due to overlying bowel gas. IMPRESSION: No sonographic evidence of gallstones or acute cholecystitis.
[2025-08-21] MEDS: vancomycin/NS 1 GM ADD-VANTAGE 250 ML IV SCH (13:25)
[2025-08-21] MEDS ORDERED: PROPYLENE GLYCOL EACHEYE SCH (14:00)
[2025-08-21] MEDS ORDERED: TETRAHYDROZOLINE EACHEYE SCH ×2 (14:00→20:00)
[2025-08-21] MEDS ORDERED: TETRAHYDROZOLINE EACHEYE (14:42)
[2025-08-21] MEDS ORDERED: PEG EACHEYE (14:42)
--- NOTE | 2025-08-21 15:05 | PROGRESS NOTE- Residence ---
Progress Note - Resident Providers to CC Resident Creating Document: JOHN LUGO RES ~ Antibiotic Timeout Antibiotic Ordered?: Yes Subjective Patient was seen and examined at bedside. Patient still complains of discomfort over right chest region. Patient right leg was under dressing. No acute overnight events noted. Objective Vital Signs Date Time Temp Pulse Resp B/P (MAP) Pulse Ox O2 Delivery O2 Flow Rate FiO2 08/21/25 12:06 16 08/21/25 10:00 97.5 69 138/74 (95) 98 Room Air 08/20/25 16:07 0 Result Diagram: 08/21/25 0434 08/21/25433 Awake , alert and oriented to time,place, person,not in distress HEENT: Atraumatic, normocephalic, PERRLA, EOMI, anicteric sclera ; pink conjunctiva, moist mucos membranes Neck: Trachea midline. Supple, normal range of motion, no JVD, no lymphadenopathy Chest and Respiratory: Equal breath sounds bilaterally, no tachypnea, wheezing, ronchi,rubs .Chest wall is symmetric and without deformity. No tenderness on palpation. Cardiac: S1, S2 heard,Regular rate and rhythm, no murmurs heard. Abdomen: Soft, mild right upper quadrant tenderness, No guarding or rigidity, Neri's sign negative. normal bowel sounds x4 quadrant, no hepatosplenomegaly MSK: Range of motion of all extremities are normal. There is no joint pain or joint swelling or joint erythema. There is no muscle pain. RLE has a cluster of wounds that are primarily filled with soft black, adherent yellow and red moist tissue with edematous reddened surrounding skin. Wound care performed. Right leg under dressing. Extremities: warm, well-perfused, No cyanosis, clubbing, 2+ pulses felt Neurological: Speech is clear, alert, and oriented x 4. No sensory or motor deficits. Cranial nerves II-XII intact. Skin: Warm and dry Psychiatry: Affect and mood are normal Plan Plan Right Lower extremity infected wound. CBC showed elevated leukocytosis with neutrophil predominance Lactic acid,procalcitonin and ESR are normal CRP is elevated 15.03 Plan: Started on vancomycin pharmacy dose. At this time, there is no clinical suspicion for Pseudomonas or MRSA infection. Wound care was consulted. Follow up with ultrasound abdomen in view of elevated AST, ALT. 08/21/2025: Wound care was performed. Patient is independent in mobility and activities of daily living. Ultrasound abdomen showed No sonographic evidence of gallstones or acute cholecystitis. Follow up with CT chest in view of suspicion of rib fracture. Follow up with wound culture. Continue on IV vancomycin q.12h. Musculoskeletal pain over right chest Fracture of 6th and 7th ribs on right side of the chest Pain management with Percocet q.4h PRN Substance use disorder Substance use navigator was consulted Services was consulted Hypertension Continue home medication lisinopril 5 mg p.o. daily Code status: Full code DVT prophylaxis : Heparin Nutrition: Regular Line/tube: PIV Disposition: Wound care was performed. Patient is doing well. Anticipate discharge in next 24 hours. Resident attestation The above note has been reviewed and supervised by a senior resident PGY3 Patient was seen, examined and discussed with the attending physician Roopa Lugo MD Internal Medicine Resident, PGY Date of Service: Aug 21, 2025 Billing Provider: FIONA HOLLIS MD Common Visit Codes: [id number] INP/OBS CARE(HIGH) JOHN LUGO, RES Aug 21, 2025 15:05 FIONA HOLLIS MD Aug 24, 2025 08:58
[2025-08-21] MEDS: TETRAHYDROZOLINE EACHEYE SCH (15:39)
[2025-08-21] MEDS: PROPYLENE GLYCOL EACHEYE SCH (15:39)
--- NOTE | 2025-08-21 16:45 | RADIOLOGY REPORT ---
CLINICAL HISTORY: fracture of ribs TECHNIQUE: CT of the chest was performed without intravenous contrast. This exam was performed according to our departmental dose optimization program. Up-to-date CT equipment and radiation dose reduction techniques are utilized as appropriate. COMPARISON: None FINDINGS: Lower Neck: Unremarkable Axilla, Mediastinum and Roseanne: Unremarkable. Heart and Great Vessels: Upper limits of Normal-sized heart without pericardial effusion. At least mild calcified coronary artery disease is present. Mild ectasia of the ascending thoracic aorta measuring 3.8 cm on series 601, image 45. The central pulmonary arteries are normal caliber. Airway, Lungs and Pleura: Trachea and central airways are patent. Linear bibasilar scarring or atelectasis. There is a small right pleural effusion. Mild dependent consolidation of the right lower lobe with air bronchograms. Upper Abdomen: No acute abnormality. Chest Wall and Osseous Structures: Multilevel thoracic spondylosis. No destructive osseous lesion. Mildly displaced fractures of the lateral right 6th right rib and nondisplaced fracture lateral right 7th rib. healing fracture of the anterior lateral right 8th rib with callus formation. IMPRESSION: 1. Nondisplaced fracture of the lateral right 6th rib and mildly displaced fracture of the lateral right 7th rib. 2. Healing fracture of the anterior lateral right 8th rib with callus formation. 3. Small right pleural effusion and mild dependent consolidation of the right lower lobe with air bronchograms. DDX includes atelectasis or pneumonia. 4. Mild calcified coronary artery disease. Radiation optimization: All CT scans at this facility use at least one of these dose optimization techniques: automated exposure control mA and/or kV adjustment per patient size (includes targeted exams where dose is matched to clinical indication) or iterative reconstruction.
[2025-08-21 18:00] VITALS: BP 136/77; PULSE 79; RESP 20; TEMP 98.5; O2SAT 95
[2025-08-21 20:00] VITALS: RESP 20; O2SAT 95
[2025-08-21] MEDS ORDERED: PEG EACHEYE SCH (20:00)
[2025-08-21] MEDS: oxyCODONE/APAP 5-325mg tablet PO PRN (20:38)
[2025-08-21 22:00] VITALS: BP 117/66; PULSE 72; RESP 21; TEMP 98.8; O2SAT 97
[2025-08-22 05:02] LABS: MEAN PLATELET VOLUME 8.3 FL (7.4-10.4); RED CELL DISTRIBUTION WIDTH 14.1 % (11.5-14.5)
[2025-08-22 05:15] LABS: CREATININE 0.72 MG/DL (0.60-1.10); TOTAL CARBON DIOXIDE 32.5 MMOL/L (24-32); eCRCL 103 ML/MIN; eGFR > 90 ML/MIN
[2025-08-22 06:00] VITALS: BP 141/82; PULSE 70; RESP 18; TEMP 98.1; O2SAT 97
[2025-08-22 08:00] VITALS: RESP 16; O2SAT 97
[2025-08-22 10:00] VITALS: BP 158/90; PULSE 72; RESP 18; TEMP 98.6; O2SAT 97
[2025-08-22] MEDS: VANCOMYCIN LEVEL IV ONE (12:37)
[2025-08-22] MEDS: JUVEN Shake w/Arg/Glut/Ca2+Bmb (Juven 19.3gm) pkt 240ml PO SCH (12:53)
[2025-08-22] MEDS ORDERED: AMOX-580 PO (14:09)
[2025-08-22] MEDS ORDERED: OXYC1TAB17 PO (14:09)
[2025-08-22 14:10] VITALS: RESP 16
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
[2025-08-22] MEDS ORDERED: VANCOmycin 1250MG/NS 250ml Bag 250 ML IV SCH (21:00)
[2025-08-23] MEDS ORDERED: VANCOMYCIN LEVEL IV ONE (20:30)
== END 2025-08-22 17:06 | disposition home or self-care (01) | DRG 135 ==
LOC: ER 11:15 → ED HOLD 13:40 → ORTHO 4S 16:31 → SUR 3N 20:15
PROVIDERS: ADMIT Internal Medicine; ATTEND Internal Medicine
DX: S22.41XA Multiple fractures of ribs, right side, initial encounter for closed fracture (principal); S81.801A Unspecified open wound, right lower leg, initial encounter; I10 Essential (primary) hypertension; F17.210 Nicotine dependence, cigarettes, uncomplicated; D72.829 Elevated white blood cell count, unspecified; X58.XXXA Exposure to other specified factors, initial encounter; J45.909 Unspecified asthma, uncomplicated; Z88.8 Allergy status to other drugs, medicaments and biological substances; Y93.89 Activity, other specified; Y92.89 Other specified places as the place of occurrence of the external cause; Y99.8 Other external cause status
CPT/HCPCS: 36415; 71045; 71250; 76700; 80048; 80053; 80061; 80202; 80305; 81001; 82948; 83036; 83605; 83735; 83880; 84100; 84145; 84484; 85025; 85651; 86140; 87070; 87075; 87077; 87081; 87186; 96365; 96372; 99285; A6250; A6446; A6449; G0378; J1644; J3373; J3375; J7030

== ENCOUNTER 2025-08-31 23:30 | Emergency (ER) | payer MEDICAID ==
[~2025-08-31] VITALS: Ht 167.6 cm; Wt 84.0 kg
[~2025-08-31 23:30] MED LIST changes: -ALBU8HFA PO; +AMOX-580 PO; +FLUO10CA28 PO; -GLYC15DR4 EACHEYE; +LISI5TAB22 PO; +OXYC1TAB17 PO; +PEG EACHEYE; +TETRAHYDROZOLINE EACHEYE
--- NOTE | 2025-09-01 01:31 | RADIOLOGY REPORT ---
CHEST RADIOGRAPH Indication: RIB PAIN Technique: 1 view Comparison: 08/20/2025 FINDINGS: Lines and Tubes: None Lungs/Pleura: No focal consolidation, pleural effusion or pneumothorax. Cardiomediastinum: Unremarkable. Other: No acute osseous abnormality. Cervical fixation hardware. IMPRESSION: 1. No acute cardiopulmonary abnormality.
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
[2025-09-01] MEDS ORDERED: NAPR-56 PO (02:25)
[2025-09-01] MEDS ORDERED: LISI2.5T14 PO (02:25)
[2025-09-01] MEDS: HYDROcodone/acetaminophen 10/325mg tab PO ONE (02:33)
[2025-09-01 02:36] VITALS: BP 116/62; PULSE 79; RESP 20; TEMP 98.6; O2SAT 2
== END 2025-09-01 02:37 | disposition home or self-care (01) ==
LOC: ER 23:30
DX: S22.41XA Multiple fractures of ribs, right side, initial encounter for closed fracture (principal); M79.642 Pain in left hand; I10 Essential (primary) hypertension; J45.909 Unspecified asthma, uncomplicated; F17.200 Nicotine dependence, unspecified, uncomplicated; X58.XXXA Exposure to other specified factors, initial encounter; Y93.89 Activity, other specified; Y92.89 Other specified places as the place of occurrence of the external cause; Y99.8 Other external cause status
CPT/HCPCS: 71046; 99283

== ENCOUNTER 2025-09-03 01:05 | Emergency (ER) | payer MEDICAID ==
[~2025-09-03] VITALS: Ht 165.1 cm; Wt 84.0 kg
[~2025-09-03 01:05] MED LIST changes: +LISI2.5T14 PO; +NAPR-56 PO
[2025-09-03] MEDS: ketorolac trometh 30MG/ML vial 30 MG/ML VIAL IM ONE (02:20)
--- NOTE | 2025-09-03 02:37 | RADIOLOGY REPORT ---
CHEST RADIOGRAPH Indication: trauma Technique: Single frontal view of the chest was obtained COMPARISON: DI CHEST,TWO VIEWS on DOS: 09/01/25, CT CT CHEST on DOS: 08/21/25, DI CHEST,SINGLE VIEW on DOS: 08/20/25, DI RIBS,UNILAT on DOS: 08/19/25, DI CHEST,SINGLE VIEW on DOS: 08/19/25 FINDINGS: Lines and Tubes: None Lungs: Clear Pleura: No effusion. No pneumothorax. Cardiomediastinal contours: Unremarkable Bones: Unremarkable IMPRESSION: 1. No acute disease.
[2025-09-03] MEDS ORDERED: LIDO-52 TOP (02:49)
[2025-09-03] MEDS ORDERED: HYDR-3965 PO (02:50)
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
[2025-09-03 03:16] VITALS: BP 142/97; PULSE 98; RESP 16; TEMP 98; O2SAT 98
[2025-09-04] MEDS ORDERED: ALBUTEROL (21:42)
== END 2025-09-03 03:18 | disposition home or self-care (01) ==
LOC: ER 01:05
DX: S20.212A Contusion of left front wall of thorax, initial encounter (principal); I10 Essential (primary) hypertension; J45.909 Unspecified asthma, uncomplicated; W19.XXXA Unspecified fall, initial encounter; Y93.89 Activity, other specified; Y92.89 Other specified places as the place of occurrence of the external cause; Y99.8 Other external cause status
CPT/HCPCS: 71045; 96372; 99284; J1885

== ENCOUNTER 2025-09-04 16:48 | Inpatient (IN) | payer MEDICAID ==
[~2025-09-04] VITALS: Ht 167.6 cm; Wt 81.8 kg
[~2025-09-04 16:48] MED LIST changes: +HYDR-3965 PO; +LIDO-52 TOP
--- NOTE | 2025-09-04 16:58 | Physician Documentation ---
History of Present Illness ~ Chief Complaint: Abscess Stated Complaint: LEG INFECTION Time Seen by MD: 18:49 HPI This is a 55-year-old male who presents to the emergency department for swelling and in his right lower extremity. He reports that he has had infection this leg previously, was treated with antibiotics which he completed two weeks ago. He reports feeling overall unwell, but denies chills or fever. Tetanus Within 5 Years: Yes Medication Reconciliation Allergies: Coded Allergies: promethazine (Verified Allergy, Unknown, 09/04/25) Scheduled Amox Tr/Potassium Clavulanate 875/125 MG (Augmentin 875/125 MG), 1 TAB PO BID Fluoxetine Hcl (Prozac), 1 CAP PO DAILY, (Reported) Lidocaine (Lidoderm), 1 PATCH TOP DAILY Lisinopril (Lisinopril), 1 TAB PO DAILY, (Reported) Lisinopril (Lisinopril), 1 TAB PO DAILY Naproxen (Naproxen), 1 TAB PO Q12H [peg/tetrahydrozoline], 1 DROP EACHEYE Q6H, (Reported) Scheduled PRN Hydrocodone Bit/Acetaminophen 5/325 MG ([place] 5/325 MG), 1 TAB PO Q6H PRN for pain Oxycodone Hcl/Acetaminophen (Oxycodone-Acetaminophen 10-325), 1 TAB PO Q6H PRN for moderate or severe pain 7-10 Discontinued Medications albuterol inhaler (Pro-Air Inhaler), 1-2 PUFFS PO Q4H PRN for shortness of breath Discontinued Reason: Auto Discontinued Past Medical History Past Medical History: Hypertension, Asthma Past Surgical History: orthopedic surgeries, other Alcohol Use: Occasionally Drug Use: none Review of Systems ROS As stated above in the HPI, otherwise all systems are reviewed and negative. Physical Exam Vital Signs: Temperature: 97.9, Source: Temporal, Heart Rate: 113, Respiratory Rate: 18, BP: 123/77, Pulse Oximetry: 98, Weight: 81.820 Physical Exam General: Alert, no apparent distress. Neck: Full range of motion. Respiratory: Lungs clear, no respiratory distress. Chest: No accessory muscle use. Cardiovascular: Regular rate and rhythm, no murmurs. Gastrointestinal: Soft, nontender, nondistended. Bowels sounds present. Extremities: Normal range of motion, no deformity. Neurologic: Oriented x4. Psychiatric: Normal mood and affect. Skin: Normal color, warm and dry. Right Leg with a edema up to the level of the knee. Right lower leg, lateral aspect, has a scrape. This is surrounded with erythema. Progress Results/Orders Results/Orders Orders - MARTINE ABRAMS NP Hospitalist (09/04/25 ) Vital Signs 09/04/25 16:50 Temp 97.9 Pulse 113 Resp 18 B/P (MAP) 123/77 Pulse Ox 98 Laboratory Tests Test 09/04/25 17:06 White Blood Count 27.3 *H Red Blood Count 4.61 L Hemoglobin 15.1 Hematocrit 42.6 Mean Corpuscular Volume 92.4 Mean Corpuscular Hemoglobin 32.7 H Mean Corpuscular Hemoglobin Concent 35.4 Red Cell Distribution Width 13.6 Platelet Count 352 Mean Platelet Volume 7.9 Neutrophils (%) (Auto) 87.8 H Lymphocytes (%) (Auto) 6.5 L Monocytes (%) (Auto) 4.8 Eosinophils (%) (Auto) 0.3 Basophils (%) (Auto) 0.6 Neutrophils # (Auto) 24.0 H Lymphocytes # (Auto) 1.8 Monocytes # (Auto) 1.3 H Eosinophils # (Auto) 0.1 Basophils # (Auto) 0.2 CBC Comment Differential Total Cells Counted 100 Neutrophils % (Manual) 86.0 H Band Neutrophils % 1.0 Lymphocytes % (Manual) 5.0 L Monocytes % (Manual) 8.0 Platelet Estimate Normal Red Blood Cell Morphology Normal Basophilic Stippling Sodium Level 139 Potassium Level 3.7 Chloride Level 103 Carbon Dioxide Level 22.5 L Anion Gap 14 Blood Urea Nitrogen 25 H Creatinine 1.58 H Estimated GFR/1.73 m2 46 BUN/Creatinine Ratio 15.8 Glucose Level 128 H Lactic Acid Level 1.5 Calcium Level 8.9 Magnesium Level 2.0 Albumin 3.6 Procalcitonin 2.66 H Chemistry Comments Microbiology Date/Time Source Procedure Growth Status 09/04/25 17:08 Blood Arm Right Blood Culture - Preliminary NEGATIVE (LESS THAN 24 HOURS) Resulted Medical Decision Making Findings This patient appears to having worsening soft tissue infection in his right lower extremity. Is grossly elevated white blood cell count well over 27. He clearly needs IV antibiotics and hospital admission. The patient currently has a green to stay allow treatment to occur Differential Dx:Considerations: Include: Abscess, Bacteremia, Cellulitis, Erysipelas, [place], Gas gangrene, Hidrademitis suppurativa, Impetigo, Lymphangitis, Osteromyelitis, Paronychia, Septicemia, Other Departure Disposition: ADMITTED INPATIENT Impression: Primary Impression: Cellulitis Additional Impression: Wound abscess Referrals: NO PRIMARY CARE PROVIDER (PCP) Signature Scribe Signature: x Attestation: The note accurately reflects work and decisions made by me.Jacque Reynoso NP 09/04/25 16:57 JACQUE SHEA NP Sep 04, 2025 16:58 MARTINE ABRAMS NP Sep 04, 2025 19:11
[2025-09-04 17:27] LABS: MEAN PLATELET VOLUME 7.9 FL (7.4-10.4); RED CELL DISTRIBUTION WIDTH 13.6 % (11.5-14.5)
[2025-09-04 17:41] LABS: CREATININE 1.58 MG/DL (0.60-1.10); TOTAL CARBON DIOXIDE 22.5 MMOL/L (24-32); eCRCL 47 ML/MIN; eGFR 46 ML/MIN
[2025-09-04 18:05] LABS: BANDS% (MANUAL) 1.0 % (0-10); LYMPHOCYTES % (MANUAL) 5.0 % (21-51); MONOCYTES % (MANUAL) 8.0 % (2-12); NEUTROPHILS % (MANUAL) 86.0 % (42-75); PLATELET ESTIMATE NORMAL
[2025-09-04] MEDS ORDERED: magnesium hydroxide 30ml (MOM) UD suspension PO PRN (19:35)
[2025-09-04] MEDS ORDERED: metoclopramide 5 mg/ml inj IV PRN (19:35)
[2025-09-04] MEDS ORDERED: morphine 4 MG/ML inj SYRINge IV PRN (19:35)
[2025-09-04] MEDS ORDERED: magnesium sulf-water 2g/50mL 50 ML IV PRN (19:35)
[2025-09-04] MEDS ORDERED: magnesium sulf-water 4G/100mL 100 ML IV PRN (19:35)
[2025-09-04] MEDS ORDERED: potassium Cl 40MEQ/1/2NS 520ml 520 ML IV PRN (19:35)
[2025-09-04] MEDS ORDERED: mag hydrox/Alum hydrox/simeth 30ml oral suspension PO PRN (19:35)
[2025-09-04] MEDS ORDERED: potassium Cl 20 mEq SR tablet PO PRN (19:35)
[2025-09-04] MEDS ORDERED: magnesium Cl slow-release 64mg tablet PO PRN (19:35)
[2025-09-04] MEDS ORDERED: ondansetron/PF 4mg/2ml inj IV PRN (19:35)
[2025-09-04] MEDS: CefTRIAXone 2gm/D5W 50ml BAG 50 ML IV ONE (19:58)
[2025-09-04] MEDS: normal saline 1000ml 1,000 ML IV ONE (19:59)
[2025-09-04] MEDS: vancomycin/NS 1 GM ADD-VANTAGE 250 ML X 1 DOSE IV ONE (20:00)
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
--- NOTE | 2025-09-04 20:34 | RADIOLOGY REPORT ---
CHEST RADIOGRAPH Indication: sob with exertion Technique: 1 view Comparison: DI CHEST,TWO VIEWS on DOS: 09/01/25 FINDINGS: Lines and Tubes: None. Lungs/Pleura: Similar bilateral perihilar interstitial opacities. No focal consolidation, pleural effusion or pneumothorax. Cardiomediastinum: Unchanged. Other: Unchanged osseous structures. IMPRESSION: No significant change from the previous study. Mild perihilar interstitial prominence without consolidation.
[2025-09-04] MEDS ORDERED: diazepam inj 5 MG/ML inj. IV PRN (20:35)
[2025-09-04] MEDS: ringers solution, lacted 1,000 ML IV ONE (20:36)
[2025-09-04] MEDS: K and/or MAG REPLACEMENT MC SCH (20:39)
[2025-09-04 21:22] VITALS: BP 106/61; PULSE 95; RESP 18; TEMP 97.7; O2SAT 98
[2025-09-04] MEDS: ringers solution, lacted 1,000 ML IV SCH (21:32)
[2025-09-04] MEDS: docusate sod 100mg capsule PO SCH (21:34)
[2025-09-04] MEDS: heparin, porcine 5000 units/ml vial SQ SCH (21:34)
[2025-09-04] MEDS ORDERED: ALBUTEROL (21:42)
[2025-09-04] MEDS: HYDROcodone/acetaminophen 5mg/325mg tablet PO PRN (22:17)
[2025-09-05 03:46] VITALS: O2SAT 96
[2025-09-05 05:56] LABS: MEAN PLATELET VOLUME 8.0 FL (7.4-10.4); RED CELL DISTRIBUTION WIDTH 13.8 % (11.5-14.5)
[2025-09-05 06:00] VITALS: BP 96/65; PULSE 83; RESP 15; TEMP 97.3; O2SAT 99
[2025-09-05 06:04] LABS: CREATININE 1.08 MG/DL (0.60-1.10); TOTAL CARBON DIOXIDE 31.5 MMOL/L (24-32); eCRCL 69 ML/MIN; eGFR 71 ML/MIN
[2025-09-05 08:00] VITALS: RESP 15; O2SAT 99
[2025-09-05] MEDS: potassium Cl 20 mEq SR tablet PO PRN (09:05)
[2025-09-05] MEDS: vancomycin/NS 1 GM ADD-VANTAGE 250 ML IV SCH (09:05)
[2025-09-05] MEDS: nicotine 7mg patch - 24hr TD SCH (09:07)
[2025-09-05] MEDS: CefTRIAXone 2gm/D5W 50ml BAG 50 ML IV SCH (09:07)
[2025-09-05 10:00] VITALS: BP 109/61; PULSE 98; RESP 16; TEMP 97.8; O2SAT 99
[2025-09-05] MEDS: HYDROcodone/acetaminophen 10/325mg tab PO PRN (13:12)
[2025-09-05] MEDS: morphine 4 MG/ML inj SYRINge IV PRN (16:52)
--- NOTE | 2025-09-05 17:59 | PROGRESS NOTE ---
Daily Progress Note Providers to CC Chief complaint, right lower extremity pain swelling redness ~ Central Line/PICC still needed: No Walker-Non Protocol Walker Indications Met/Not Met: F/C Indications Not Met Antibiotic Timeout Antibiotic Ordered?: Yes MRSA Education MRSA Education Provided to pt: Yes Subjective As above Objective Vital Signs Date Time Temp Pulse Resp B/P (MAP) Pulse Ox O2 Delivery O2 Flow Rate FiO2 09/05/25 16:52 16 09/05/25 10:00 97.8 98 109/61 (77) 99 Room Air 09/05/25 03:46 0 21 Vital signs, stable ,afebrile. Pulse Oximetry reflects adequate oxygenation. General: well developed, well nourished. Awake , alert, and oriented x4, resting comfortably in the bed, in no acute distress . Skin: Warm, dry, no pallor, no rash or petechiae. HEENT: Atraumatic, normocephalic, EOMI, anicteric sclera B; pink conjunctiva; PERRLA, normal oropharynx, moist oral and nasal mucosa. Tympanic membrane , nose , throat clear. Neck: Trachea midline. Supple, full range of motion, no JVD, bruit , hepatojugular reflex , lymphadenopathy or masses, or other lesions Cardiac: Regular rhythm, regular rate no murmurs, rubs, or gallops. Normal S1 and S2, no S3 noticed. PMI is normal. Respiratory: Equal breath sounds bilaterally, no tachypnea; lungs clear to auscultation bilaterally, no wheezing ,rub or rales, or crackles. Chest wall is symmetric and without deformity. No signs of trauma. Chest wall is nontender. No signs of respiratory distress. Resonance is normal upon percussion bilaterally. Gastrointestinal: Abdomen symmetric, non-distended, soft, non-tender, normal bowel sounds x4 quadrant, normoactive, no hepatosplenomegaly , no masses , no bruit, no flank pain bilaterally. No voluntary guarding, rebound, or rigidity. No tenderness to percussion. No pulsatile masses. Equal femoral pulses. No Neri's sign or McBurney point tenderness. Back; no CVA tenderness bilaterally, no deformities. Neck and back are without deformity as well. No tenderness noted on palpation of the spinous processes. Spinous processes are midline. Cervical, thoracic, and lumbar paraspinal muscles are not tender and are without spasm. : normal external genitalia, without lesions, swelling, masses or tenderness. Musculoskeletal: Extremities, normal range of motion, non-tender, muscle strength 5/5 x 4. Negative Homans signs bilaterally on lower extremity. Distal pulses full symmetrical, no clubbing, cyanosis , edema. Locally, right lower extremity plus three edema red , tender to palpation no subcutaneous crepitation or emphysema, dressing clean dry intact, neurovascular grossly intact Neurological: Speech is clear, alert, and oriented x 4. No motor or sensory deficit, deep tendon reflexes normal, cerebellar intact. Cranial nerves II-XII intact. Psych: Alert and or appropriate, normal affect. Vascular: Good distal pulses, which are equal x4; capillary refill less than 2 seconds. Lymphatic, no lymphadenopathy. Result Diagram: 09/05/2552009/05/25520 Problem\Assessment\Plan Assessment 55-year-old male patient who presents for progressive redness and swelling in the right leg, associated with chills and weakness. He was admitted for IV antibiotics and further evaluation. 1. Sepsis secondary to right leg cellulitis, failed outpatient treatment 2 SIRS criteria + source of infection Patient fell on August 19 with right leg laceration and subsequent cellulitis Complains of progressive pain, edema, and erythema in the right leg for the past two days after finishing 14 days of Augmentin WBC 27.3, procalcitonin 2.66, ESR pending Clinically dehydrated, normal BP, tachycardic, severe pain Plan Started on ceftriaxone plus vancomycin 1000 mL lactated ringer bolus, followed by 125mL/h Ordered blood cultures Ordered right leg MRI to evaluate for possible abscess Wound care consult 2. Acute kidney injury, possible ATN in view of sepsis Cr 1.58, BUN 25, BUN/Cr 15.8, GFR 46 (Baseline Cr 0.72) IV hydration with crystalloids at 125mL/h Ordered urine lytes Avoid nephrotoxic drugs and contrast Monitor daily 3. Multiple substance use disorder, including: a. Methamphetamine use disorder b. Opioid use disorder c. Alcohol use disorder d. Nicotine use disorder Pending drug screen Social service and substance use navigator consulted Nicotine patch Mild alcohol withdrawal protocol placed Code Status: Full code DVT prophylaxis: Heparin Analgesia/sedation: Morphine/[place] Line/tube: PIV GI prophylaxis: None Nutrition: Regular diet Prognosis: Guarded Sepsis Screening Reassessment Date: Sep 05, 2025 Date of Service: Sep 05, 2025 Billing Provider: MICKEY AMARO MD Common Visit Codes: [id number] INP/OBS CARE(HIGH) MICKEY AMARO MD Sep 05, 2025 17:59
[2025-09-05 18:00] VITALS: BP 116/65; PULSE 88; RESP 20; TEMP 98.4; O2SAT 99
--- NOTE | 2025-09-05 20:17 | RADIOLOGY REPORT ---
Procedure: CT CT CHEST Reason for study/Clinical History: Bilateral pulmonary opacities Comparison Study: Previous day chest radiographs, CT chest 08/21/2025 TECHNIQUE: Multidetector CT of the chest was performed from the lung apices to the upper abdomen without the use of intravenous contract. Axial, coronal and sagittal multiplanar reformats were performed. Radiation Dose Information: CT Dose: CTDI volume is 18 mGy. Dose-length product is 790 mGy*cm The dose indicators for CT are the volume Computed Tomography (CT) Dose Index (CTDIvol) and the Dose Length Product (DLP), and are measured in units of mGy and mGy-cm, respectively. These indicators are not patient dose, but values generated from the CT scanner acquisition factors. The report includes radiation exposure data for exposures received during this examination. FINDINGS: Lower neck: Unremarkable. Lungs: Borderline enlargement of peripheral pulmonary arteries. Mild basilar atelectasis. No focal consolidation. Central airways are clear. Heart/Vascular Structures: Normal heart size. No pericardial effusion. Mild multivessel coronary atherosclerosis. Pulmonary trunk measures 3.2 cm in diameter. Lymph Nodes: No adenopathy Pleura: No effusion or pneumothorax. Musculoskeletal: No acute osseous abnormality. Degenerative change of the spine. Soft tissues: Unremarkable. Upper abdomen: No significant abnormality. IMPRESSION: 1. No acute consolidation. Mild basilar atelectasis. 2. Mild central and peripheral pulmonary artery enlargement suggesting hypertension. Radiation optimization: All CT scans at this facility use at least one of these dose optimization techniques: automated exposure control mA and/or kV adjustment per patient size (includes targeted exams where dose is matched to clinical indication) or iterative reconstruction.
--- NOTE | 2025-09-05 20:22 | RADIOLOGY REPORT ---
EXAM: CT CT LOWER EXTREMITY INDICATION: Right lower extremity cellulitis associated with abscess TECHNIQUE: Axial images of right lower extremity have been obtained along with coronal and sagittal reformatted images. All CT scans at this facility use dose modulation, iterative reconstruction, and/or weight based dosing when appropriate to reduce radiation dose to as low as reasonably achievable. COMPARISON: MR MRI LOWER EXTREMITY RIGHT on DOS: 09/05/25 FINDINGS: BONES: No CT evidence of an acute fracture or aggressive osseous lesion. MUSCLES: No abnormal attenuation. JOINT SPACES: No joint effusion. TENDONS/LIGAMENTS: Intact. OTHER: Significant circumferential skin thickening with subcutaneous adipose tissue edema. No soft tissue emphysema. Involvement of the entirety of the right lower extremity. No drainable fluid collection. Correlate for cellulitis and/or fasciitis. Mild circumferential bladder wall thickening. IMPRESSION: 1. Significant circumferential skin thickening with subcutaneous adipose tissue edema. 2. No soft tissue emphysema. 3. Involvement of the entirety of the right lower extremity. 4. No drainable fluid collection. 5. Correlate for cellulitis and/or fasciitis. 6. Mild circumferential bladder wall thickening. 7. Correlate with urinalysis.
[2025-09-05 22:00] VITALS: BP 107/58; PULSE 90; RESP 16; TEMP 98.1; O2SAT 96
[2025-09-06] VITALS (7 sets, daily range): BP systolic 105–139; BP diastolic 61–80; PULSE 82–91; RESP 15–18; TEMP 98.5–99.3; O2SAT 96–100
--- NOTE | 2025-09-06 08:56 | RADIOLOGY REPORT ---
CLINICAL HISTORY: Refractory cellulitis. TECHNIQUE: Multi sequence multi planar MRI images of the right lower leg were obtained prior to and after the uneventful administration of 15 mL Clariscan contrast. COMPARISON: CT CT LOWER EXTREMITY on DOS: 09/05/25 FINDINGS: There is moderate subcutaneous edema and ill-defined fluid throughout the right lower leg with mild postcontrast enhancement, likely cellulitis in the appropriate clinical setting. There is fluid in the anterior subcutaneous tissues at the level of the proximal right lower leg, possible phlegmon, although no definite drainable fluid collection identified. No evidence of myositis or fasciitis. Normal marrow signal throughout the visualized osseous structures. No evidence for osteomyelitis. IMPRESSION: 1. Findings consistent with cellulitis with somewhat ill-defined fluid, most prominent in the proximal aspect of the right lower leg, possible phlegmon, without drainable fluid collection. 2. No evidence for osteomyelitis. No evidence for myositis or fasciitis.
[2025-09-06] MEDS: VANCOMYCIN LEVEL IV ONE (09:30)
[2025-09-06 10:05] LABS: MEAN PLATELET VOLUME 8.4 FL (7.4-10.4); RED CELL DISTRIBUTION WIDTH 14.1 % (11.5-14.5)
[2025-09-06 10:13] LABS: CREATININE 1.01 MG/DL (0.60-1.10); TOTAL CARBON DIOXIDE 29.2 MMOL/L (24-32); eCRCL 74 ML/MIN; eGFR 76 ML/MIN
[2025-09-06] MEDS: GADOTERATE MEGLUMINE 7.5 MMOL/15 ML VIAL IV ONE (11:52)
--- NOTE | 2025-09-06 18:28 | PROGRESS NOTE ---
Daily Progress Note Providers to CC ~ chief complaint, right lower extremity pain Central Line/PICC still needed: No Walker-Non Protocol Walker Indications Met/Not Met: F/C Indications Not Met Antibiotic Timeout Antibiotic Ordered?: Yes MRSA Education MRSA Education Provided to pt: Yes Subjective As above Objective Vital Signs Date Time Temp Pulse Resp B/P (MAP) Pulse Ox O2 Delivery O2 Flow Rate FiO2 09/06/25 17:44 16 09/06/25 10:00 98.5 82 108/65 (79) 98 Room Air 09/05/25 03:46 0 21 Vital signs, stable ,afebrile. Pulse Oximetry reflects adequate oxygenation. General: well developed, well nourished. Awake , alert, and oriented x4, resting comfortably in the bed, in no acute distress . Skin: Warm, dry, no pallor, no rash or petechiae. HEENT: Atraumatic, normocephalic, EOMI, anicteric sclera B; pink conjunctiva; PERRLA, normal oropharynx, moist oral and nasal mucosa. Tympanic membrane , nose , throat clear. Neck: Trachea midline. Supple, full range of motion, no JVD, bruit , hepatojugular reflex , lymphadenopathy or masses, or other lesions Cardiac: Regular rhythm, regular rate no murmurs, rubs, or gallops. Normal S1 and S2, no S3 noticed. PMI is normal. Respiratory: Equal breath sounds bilaterally, no tachypnea; lungs clear to auscultation bilaterally, no wheezing ,rub or rales, or crackles. Chest wall is symmetric and without deformity. No signs of trauma. Chest wall is nontender. No signs of respiratory distress. Resonance is normal upon percussion bilaterally. Gastrointestinal: Abdomen symmetric, non-distended, soft, non-tender, normal bowel sounds x4 quadrant, normoactive, no hepatosplenomegaly , no masses , no bruit, no flank pain bilaterally. No voluntary guarding, rebound, or rigidity. No tenderness to percussion. No pulsatile masses. Equal femoral pulses. No Neri's sign or McBurney point tenderness. Back; no CVA tenderness bilaterally, no deformities. Neck and back are without deformity as well. No tenderness noted on palpation of the spinous processes. Spinous processes are midline. Cervical, thoracic, and lumbar paraspinal muscles are not tender and are without spasm. : normal external genitalia, without lesions, swelling, masses or tenderness. Musculoskeletal: Extremities, normal range of motion, non-tender, muscle strength 5/5 x 4. Negative Homans signs bilaterally on lower extremity. Distal pulses full symmetrical, no clubbing, cyanosis , edema. Locally, right lower extremity started from lower leg up to the thigh + four edema tender to palpation red no 40 Neurological: Speech is clear, alert, and oriented x 4. No motor or sensory deficit, deep tendon reflexes normal, cerebellar intact. Cranial nerves II-XII intact. Psych: Alert and or appropriate, normal affect. Vascular: Good distal pulses, which are equal x4; capillary refill less than 2 seconds. Lymphatic, no lymphadenopathy. Result Diagram: 09/06/2592909/06/25929 Problem\Assessment\Plan Assessment 55-year-old male patient who presents for progressive redness and swelling in the right leg, associated with chills and weakness. He was admitted for IV antibiotics and further evaluation. 1. Sepsis secondary to right leg and thigh cellulitis, failed outpatient treatment MRI of the right thigh pending 2 SIRS criteria + source of infection Patient fell on August 19 with right leg laceration and subsequent cellulitis Complains of progressive pain, edema, and erythema in the right leg for the past two days after finishing 14 days of Augmentin WBC 27.3, procalcitonin 2.66, ESR pending Clinically dehydrated, normal BP, tachycardic, severe pain Plan Started on ceftriaxone plus vancomycin 1000 mL lactated ringer bolus, followed by 125mL/h Ordered blood cultures Ordered right leg MRI to evaluate for possible abscess Wound care consult 2. Acute kidney injury, possible ATN in view of sepsis Cr 1.58, BUN 25, BUN/Cr 15.8, GFR 46 (Baseline Cr 0.72) IV hydration with crystalloids at 125mL/h Ordered urine lytes Avoid nephrotoxic drugs and contrast Monitor daily 3. Multiple substance use disorder, including: a. Methamphetamine use disorder b. Opioid use disorder c. Alcohol use disorder d. Nicotine use disorder Pending drug screen Social service and substance use navigator consulted Nicotine patch Mild alcohol withdrawal protocol placed Code Status: Full code DVT prophylaxis: Heparin Analgesia/sedation: Morphine/[place] Line/tube: PIV GI prophylaxis: None Nutrition: Regular diet Prognosis: Guarded Sepsis Screening Reassessment Date: Sep 06, 2025 Date of Service: Sep 06, 2025 Billing Provider: MICKEY AMARO MD Common Visit Codes: [id number] INP/OBS CARE(HIGH) MICKEY AMARO MD Sep 06, 2025 18:28
[2025-09-06] MEDS: VANCOMYCIN/WATER FOR INJ (PEG) 1.5GM/300 ML IVPB IV SCH (20:19)
[2025-09-07 06:00] VITALS: BP 112/57; PULSE 90; RESP 18; TEMP 98.1; O2SAT 97
[2025-09-07 07:18] LABS: MEAN PLATELET VOLUME 7.7 FL (7.4-10.4); RED CELL DISTRIBUTION WIDTH 14.2 % (11.5-14.5)
[2025-09-07 07:49] LABS: CREATININE 0.81 MG/DL (0.60-1.10); TOTAL CARBON DIOXIDE 30.7 MMOL/L (24-32); eCRCL 92 ML/MIN; eGFR > 90 ML/MIN
[2025-09-07 08:00] VITALS: RESP 18; O2SAT 97
[2025-09-07] MEDS: VANCOMYCIN LEVEL IV ONE (09:30)
[2025-09-07 10:00] VITALS: BP 157/86; PULSE 85; RESP 18; TEMP 98.6; O2SAT 95
--- NOTE | 2025-09-07 17:13 | PROGRESS NOTE ---
Daily Progress Note Providers to CC Feels better today, less pain redness and swelling right lower extremity ~ Central Line/PICC still needed: No Walker-Non Protocol Walker Indications Met/Not Met: F/C Indications Not Met Antibiotic Timeout Antibiotic Ordered?: Yes MRSA Education MRSA Education Provided to pt: Yes Subjective As above Objective Vital Signs Date Time Temp Pulse Resp B/P (MAP) Pulse Ox O2 Delivery O2 Flow Rate FiO2 09/07/25 10:00 98.6 85 18 157/86 (109) 95 09/07/25 08:00 Room Air 09/05/25 03:46 0 21 Vital signs, stable ,afebrile. Pulse Oximetry reflects adequate oxygenation General: well developed, well nourished. Awake , alert, and oriented x4, resting comfortably in the bed, in no acute distress . Skin: Warm, dry, no pallor, no rash or petechiae. HEENT: Atraumatic, normocephalic, EOMI, anicteric sclera B; pink conjunctiva; PERRLA, normal oropharynx, moist oral and nasal mucosa. Tympanic membrane , nose , throat clear. Neck: Trachea midline. Supple, full range of motion, no JVD, bruit , hepatojugular reflex , lymphadenopathy or masses, or other lesions Cardiac: Regular rhythm, regular rate no murmurs, rubs, or gallops. Normal S1 and S2, no S3 noticed. PMI is normal. Respiratory: Equal breath sounds bilaterally, no tachypnea; lungs clear to auscultation bilaterally, no wheezing ,rub or rales, or crackles. Chest wall is symmetric and without deformity. No signs of trauma. Chest wall is nontender. No signs of respiratory distress. Resonance is normal upon percussion bilaterally. Gastrointestinal: Abdomen symmetric, non-distended, soft, non-tender, normal bowel sounds x4 quadrant, normoactive, no hepatosplenomegaly , no masses , no bruit, no flank pain bilaterally. No voluntary guarding, rebound, or rigidity. No tenderness to percussion. No pulsatile masses. Equal femoral pulses. No Neri's sign or McBurney point tenderness. Back; no CVA tenderness bilaterally, no deformities. Neck and back are without deformity as well. No tenderness noted on palpation of the spinous processes. Spinous processes are midline. Cervical, thoracic, and lumbar paraspinal muscles are not tender and are without spasm. : normal external genitalia, without lesions, swelling, masses or tenderness. Musculoskeletal: Extremities, normal range of motion, non-tender, muscle strength 5/5 x 4. Negative Homans signs bilaterally on lower extremity. Distal pulses full symmetrical, no clubbing, cyanosis , edema. Locally, right lower extremity plus two edema mild tender to palpation no subcutaneous crepitation, or neurovascular grossly intact, dressing clean dry intact Neurological: Speech is clear, alert, and oriented x 4. No motor or sensory deficit, deep tendon reflexes normal, cerebellar intact. Cranial nerves II-XII intact. Psych: Alert and or appropriate, normal affect. Vascular: Good distal pulses, which are equal x4; capillary refill less than 2 seconds. Lymphatic, no lymphadenopathy. Result Diagram: 09/07/2570209/07/25702 Problem\Assessment\Plan Assessment 55-year-old male patient who presents for progressive redness and swelling in the right leg, associated with chills and weakness. He was admitted for IV antibiotics and further evaluation. 1. Sepsis secondary to right leg and thigh cellulitis, failed outpatient treatment MRI of the right thigh pending 2 SIRS criteria + source of infection Patient fell on August 19 with right leg laceration and subsequent cellulitis Complains of progressive pain, edema, and erythema in the right leg for the past two days after finishing 14 days of Augmentin WBC 27.3, procalcitonin 2.66, ESR pending Clinically dehydrated, normal BP, tachycardic, severe pain Plan Started on ceftriaxone plus vancomycin 1000 mL lactated ringer bolus, followed by 125mL/h Ordered blood cultures Ordered right leg MRI to evaluate for possible abscess Wound care consult 2. Acute kidney injury, possible ATN in view of sepsis Cr 1.58, BUN 25, BUN/Cr 15.8, GFR 46 (Baseline Cr 0.72) IV hydration with crystalloids at 125mL/h Ordered urine lytes Avoid nephrotoxic drugs and contrast Monitor daily 3. Multiple substance use disorder, including: a. Methamphetamine use disorder b. Opioid use disorder c. Alcohol use disorder d. Nicotine use disorder Pending drug screen Social service and substance use navigator consulted Nicotine patch Mild alcohol withdrawal protocol placed Code Status: Full code DVT prophylaxis: Heparin Analgesia/sedation: Morphine/[place] Line/tube: PIV GI prophylaxis: None Nutrition: Regular diet Prognosis: Guarded Sepsis Screening Reassessment Date: Sep 07, 2025 Date of Service: Sep 07, 2025 Billing Provider: MICKEY AMARO MD Common Visit Codes: [id number] INP/OBS CARE(HIGH) MICKEY AMARO MD Sep 07, 2025 17:13
[2025-09-07 18:00] VITALS: BP 151/85; PULSE 87; RESP 18; TEMP 98.6; O2SAT 99
[2025-09-07 22:00] VITALS: BP 140/78; PULSE 83; RESP 19; TEMP 98.8; O2SAT 97
[2025-09-08 05:33] LABS: MEAN PLATELET VOLUME 7.9 FL (7.4-10.4); RED CELL DISTRIBUTION WIDTH 14.4 % (11.5-14.5)
[2025-09-08 06:00] VITALS: BP 125/77; PULSE 79; RESP 18; TEMP 98.5; O2SAT 96
[2025-09-08 06:03] LABS: CREATININE 0.79 MG/DL (0.60-1.10); TOTAL CARBON DIOXIDE 31.2 MMOL/L (24-32); eCRCL 94 ML/MIN; eGFR > 90 ML/MIN
[2025-09-08 08:00] VITALS: RESP 18; O2SAT 96
[2025-09-08 10:00] VITALS: BP 160/86; PULSE 86; RESP 16; TEMP 97.7; O2SAT 98
[2025-09-08] MEDS: VANCOMYCIN LEVEL IV ONE (10:17)
--- NOTE | 2025-09-08 15:52 | PROGRESS NOTE ---
Daily Progress Note Providers to CC ~ feels better today, less pain better sleep, MRI of the leg pending Central Line/PICC still needed: No Walker-Non Protocol Walker Indications Met/Not Met: F/C Indications Not Met Antibiotic Timeout Antibiotic Ordered?: Yes MRSA Education MRSA Education Provided to pt: Yes Subjective As above Objective Vital Signs Date Time Temp Pulse Resp B/P (MAP) Pulse Ox O2 Delivery O2 Flow Rate FiO2 09/08/25 10:00 97.7 86 16 160/86 (110) 98 Room Air 09/05/25 03:46 0 21 Vital signs, stable ,afebrile. Pulse Oximetry reflects adequate oxygenation. General: well developed, well nourished. Awake , alert, and oriented x4, resting comfortably in the bed, in no acute distress . Skin: Warm, dry, no pallor, no rash or petechiae. HEENT: Atraumatic, normocephalic, EOMI, anicteric sclera B; pink conjunctiva; PERRLA, normal oropharynx, moist oral and nasal mucosa. Tympanic membrane , nose , throat clear. Neck: Trachea midline. Supple, full range of motion, no JVD, bruit , hepatojugular reflex , lymphadenopathy or masses, or other lesions Cardiac: Regular rhythm, regular rate no murmurs, rubs, or gallops. Normal S1 and S2, no S3 noticed. PMI is normal. Respiratory: Equal breath sounds bilaterally, no tachypnea; lungs clear to auscultation bilaterally, no wheezing ,rub or rales, or crackles. Chest wall is symmetric and without deformity. No signs of trauma. Chest wall is nontender. No signs of respiratory distress. Resonance is normal upon percussion bilaterally. Gastrointestinal: Abdomen symmetric, non-distended, soft, non-tender, normal bowel sounds x4 quadrant, normoactive, no hepatosplenomegaly , no masses , no bruit, no flank pain bilaterally. No voluntary guarding, rebound, or rigidity. No tenderness to percussion. No pulsatile masses. Equal femoral pulses. No Neri's sign or McBurney point tenderness. Back; no CVA tenderness bilaterally, no deformities. Neck and back are without deformity as well. No tenderness noted on palpation of the spinous processes. Spinous processes are midline. Cervical, thoracic, and lumbar paraspinal muscles are not tender and are without spasm. : normal external genitalia, without lesions, swelling, masses or tenderness. Musculoskeletal: Extremities, normal range of motion, non-tender, muscle strength 5/5 x 4. Negative Homans signs bilaterally on lower extremity. Distal pulses full symmetrical, no clubbing, cyanosis , edema. Locally, right lower extremity started from the thigh up to the ankle plus two edema red mild tender to palpation improving Neurological: Speech is clear, alert, and oriented x 4. No motor or sensory deficit, deep tendon reflexes normal, cerebellar intact. Cranial nerves II-XII intact. Psych: Alert and or appropriate, normal affect. Vascular: Good distal pulses, which are equal x4; capillary refill less than 2 seconds. Lymphatic, no lymphadenopathy. Result Diagram: 09/08/2545009/08/25450 Problem\Assessment\Plan Assessment 55-year-old male patient who presents for progressive redness and swelling in the right leg, associated with chills and weakness. He was admitted for IV antibiotics and further evaluation. 1. Sepsis secondary to right leg and thigh cellulitis, failed outpatient treatment MRI of the right thigh pending 2 SIRS criteria + source of infection Patient fell on August 19 with right leg laceration and subsequent cellulitis Complains of progressive pain, edema, and erythema in the right leg for the past two days after finishing 14 days of Augmentin WBC 27.3, procalcitonin 2.66, ESR pending Clinically dehydrated, normal BP, tachycardic, severe pain Plan Started on ceftriaxone plus vancomycin 1000 mL lactated ringer bolus, followed by 125mL/h Ordered blood cultures Ordered right leg MRI to evaluate for possible abscess Wound care consult 2. Acute kidney injury, possible ATN in view of sepsis Cr 1.58, BUN 25, BUN/Cr 15.8, GFR 46 (Baseline Cr 0.72) IV hydration with crystalloids at 125mL/h Ordered urine lytes Avoid nephrotoxic drugs and contrast Monitor daily 3. Multiple substance use disorder, including: a. Methamphetamine use disorder b. Opioid use disorder c. Alcohol use disorder d. Nicotine use disorder Pending drug screen Social service and substance use navigator consulted Nicotine patch Mild alcohol withdrawal protocol placed Code Status: Full code DVT prophylaxis: Heparin Analgesia/sedation: Morphine/[place] Line/tube: PIV GI prophylaxis: None Nutrition: Regular diet Prognosis: Guarded Date of Service: Sep 08, 2025 Billing Provider: MICKEY AMARO MD Common Visit Codes: [id number] INP/OBS CARE(HIGH) MICKEY AMARO MD Sep 08, 2025 15:52
[2025-09-08] MEDS: GADOTERATE MEGLUMINE 7.5 MMOL/15 ML VIAL IV ONE (16:27)
--- NOTE | 2025-09-08 16:51 | RADIOLOGY REPORT ---
CLINICAL HISTORY: Edema, cellulitis. TECHNIQUE: Multi sequence multi planar MRI images of the right thigh were obtained prior to and after the uneventful administration of 15 mL Clariscan contrast. COMPARISON: CT CT LOWER EXTREMITY on DOS: 09/05/25 FINDINGS: There is artifact limiting evaluation and causing loss of fat saturation on some fat saturated sequences. There is subcutaneous edema and enhancement throughout most of the right thigh, which may be seen with cellulitis in the appropriate clinical setting, significantly asymmetric compared to the contralateral left thigh. Ill-defined fluid with no organized peripherally enhancing fluid collection identified to suggest abscess. No evidence for osteomyelitis. No findings are seen to suggest myositis or significant fasciitis. Enlarged right inguinal lymph nodes measuring up to 2.9 x 1.5 cm, likely reactive lymph nodes. IMPRESSION: 1. Examination is limited due to artifact. 2. Findings described above may be seen with cellulitis in the appropriate clinical setting. No evidence of abscess. No myositis or significant fasciitis. 3. No evidence for osteomyelitis. 4. Likely reactive lymph nodes in the right inguinal region.
[2025-09-08 18:00] VITALS: BP 165/96; PULSE 83; RESP 16; TEMP 99.4; O2SAT 97
[2025-09-08] MEDS: VANCOMYCIN 1.75GM/WATER FOR INJ (PEG) 350 ML IVPB IV SCH (21:16)
[2025-09-08 22:00] VITALS: BP 168/89; PULSE 84; RESP 22; TEMP 98.5; O2SAT 95
[2025-09-08 23:45] VITALS: BP 125/77
[2025-09-09 06:00] VITALS: BP 145/80; PULSE 73; RESP 16; TEMP 98.5; O2SAT 96
[2025-09-09 06:01] LABS: MEAN PLATELET VOLUME 7.6 FL (7.4-10.4); RED CELL DISTRIBUTION WIDTH 13.7 % (11.5-14.5)
[2025-09-09 06:24] LABS: CREATININE 0.89 MG/DL (0.60-1.10); TOTAL CARBON DIOXIDE 29.7 MMOL/L (24-32); eCRCL 84 ML/MIN; eGFR 88 ML/MIN
[2025-09-09 10:00] VITALS: BP 135/74; PULSE 83; RESP 16; TEMP 98; O2SAT 97
[2025-09-09] MEDS: albuterol 2.5 MG/3 ML nebule NEB PRN (12:19)
[2025-09-09 12:23] VITALS: PULSE 78; RESP 14; O2SAT 97
[2025-09-09 12:28] VITALS: PULSE 79; RESP 16
[2025-09-09 18:00] VITALS: BP 145/73; PULSE 84; RESP 14; TEMP 99.6; O2SAT 97
--- NOTE | 2025-09-09 21:36 | PROGRESS NOTE ---
Daily Progress Note Providers to CC ~ Antibiotic Timeout Antibiotic Ordered?: Yes Subjective The patient is erythema in his right lower extremity is improving and has receded from the line of demarcation however is rather quite significant. The wound culture from July hospitalization grew out MRSA the patient has been discharged with Augmentin Objective Vital Signs Date Time Temp Pulse Resp B/P (MAP) Pulse Ox O2 Delivery O2 Flow Rate FiO2 09/09/25 18:00 99.6 84 14 145/73 (97) 97 Room Air 09/09/25 12:28 0.0 09/09/25 12:23 21 Result Diagram: 09/09/25 0505 09/09/25 0505 Gen. No acute distress alert and oriented 4 Lungs clear to ascultation bilaterally, no wheezes rales or rhonchi appreciated Heart normal sinus rhythm no murmurs rubs or clicks noted Abdomen soft nontender bowel sounds are normoactive Lower extremities no clubbing cyanosis, nor edema appreciated left, significant erythema receding from the line of demarcation on the right Problem\Assessment\Plan Assessment 55-year-old male patient who presents for progressive redness and swelling in the right leg, associated with chills and weakness. He was admitted for IV antibiotics and further evaluation. 1. Sepsis secondary to right leg and thigh cellulitis, failed outpatient treatment MRI of the right thigh pending 2 SIRS criteria + source of infection Patient fell on August 19 with right leg laceration and subsequent cellulitis Complains of progressive pain, edema, and erythema in the right leg for the past two days after finishing 14 days of Augmentin - for which the wound culture grew out MRSA. WBC 27.3, procalcitonin 2.66, ESR pending Clinically dehydrated, normal BP, tachycardic, severe pain Plan Started on ceftriaxone plus vancomycin 1000 mL lactated ringer bolus, followed by 125mL/h Ordered blood cultures MRI was negative for abscess When ready for discharge we will need the appropriate antibiotic to treat MRSA as per wound culture from 08/22/2025 and outpatient wound care follow up 2. Acute kidney injury, possible ATN in view of sepsis Cr 1.58, BUN 25, BUN/Cr 15.8, GFR 46 (Baseline Cr 0.72) IV hydration with crystalloids at 125mL/h Resolved 3. Multiple substance use disorder, including: a. Methamphetamine use disorder b. Opioid use disorder c. Alcohol use disorder d. Nicotine use disorder Pending drug screen Social service and substance use navigator consulted Nicotine patch Mild alcohol withdrawal protocol placed Code Status: Full code DVT prophylaxis: Heparin Analgesia/sedation: Morphine/[place] Line/tube: PIV GI prophylaxis: None Nutrition: Regular diet Prognosis: Guarded Date of Service: Sep 09, 2025 Billing Provider: LEXA ANTUNEZ DO Common Visit Codes: [id number] INP/OBS CARE(HIGH) LEXA ANTUNEZ DO Sep 09, 2025 21:36
[2025-09-09 22:00] VITALS: BP 135/75; PULSE 74; RESP 16; TEMP 98.8; O2SAT 97
[2025-09-10 06:00] VITALS: BP 128/77; PULSE 68; RESP 16; TEMP 98.2; O2SAT 97
[2025-09-10 08:58] LABS: MEAN PLATELET VOLUME 6.8 FL (7.4-10.4); RED CELL DISTRIBUTION WIDTH 14.1 % (11.5-14.5)
[2025-09-10 09:23] LABS: CREATININE 0.86 MG/DL (0.60-1.10); TOTAL CARBON DIOXIDE 29.5 MMOL/L (24-32); eCRCL 87 ML/MIN; eGFR > 90 ML/MIN
[2025-09-10] MEDS ORDERED: VANCOMYCIN LEVEL IV ONE (09:30)
[2025-09-10 10:00] VITALS: BP 122/72; PULSE 75; RESP 17; TEMP 97; O2SAT 98
[2025-09-10 10:05] LABS: BANDS% (MANUAL) 3.0 % (0-10); EOSINOPHILS % (MANUAL) 8.0 % (0-6); LYMPHOCYTES % (MANUAL) 17.0 % (21-51); METAMYLEOCYTES% (MANUAL) 10.0 % (0-0); MONOCYTES % (MANUAL) 6.0 % (2-12); NEUTROPHILS % (MANUAL) 56.0 % (42-75)
[2025-09-10 10:06] LABS: PLATELET ESTIMATE NORMAL
[2025-09-10] MEDS ORDERED: thiamine tablet PO (10:49)
[2025-09-10] MEDS ORDERED: LINE600T14 PO (10:49)
[2025-09-10] MEDS: normal saline 1000ml 1,000 ML IV SCH (11:20)
[2025-09-10 11:30] VITALS: PULSE 71; RESP 16; O2SAT 97
[2025-09-10 12:20] VITALS: RESP 16
--- NOTE | 2025-09-10 14:56 | DISCHARGE SUMMARY ---
Discharge Summary Providers to CC ~ Discharge Summary Admission Diagnosis: Right leg cellulitis, sepsis Hospital Course DATE OF ADMISSION: 09/04/25 DATE OF DISCHARGE: 09/10/25 Discharge Diagnosis\\Comment: Sepsis 2/2 cellulitis, failed outpatient treatment Cellulitis, RLE Prerenal JOHN 2/2 sepsis/vasomotor nephropathy Polysubstance use disorder Operations\\Procedures: None Consultants: None Complications: None Condition on DC: Stable New Medications: Linezolid (Linezolid) 600 Mg Tablet 1 TAB PO Q12H for 10 Days, #20 TAB 0 Refills [thiamine tablet] () 100 MG TABLET 100 MG PO DAILY for 90 Days, #90 Continued Medications: Fluoxetine Hcl (Prozac) 10 Mg Capsule 1 CAP PO DAILY for 30 Days, #30 CAP 0 Refills Lidocaine (Lidoderm) 5 % Adh..patch 1 PATCH TOP DAILY for 20 Days, #20 PATCH 0 Refills may wear up to 12 hours Lisinopril (Lisinopril) 5 Mg Tablet 1 TAB PO DAILY Naproxen (Naproxen) 500 Mg Tablet 1 TAB PO Q12H, #20 TAB [peg/tetrahydrozoline] () 1 DROP EACHEYE Q6H Discharge Summary: History of Present Illness From H&P: "This is a 55-year-old male patient with a past medical history of hypertension, methamphetamine, opioid, nicotine, and alcohol use disorder, who presented to the ER for progressive pain, edema, and erythema in the right leg for the past two days. He fell under his right chest and right leg on August 19, was admitted for pain control, and discharged with Augmentin for 14 days due to right leg laceration. As soon as the antibiotic course ended, redness and tenderness developed in the right leg, progressing proximally towards the right groin, accompanied by increasing swelling and warmth. Pain is 9/10 intensity despite opioids. He denies fever or purulent discharge but reports chills and weakness. Patient also complains of shortness of breath with exertion, denies productive cough, chest pain, or other cardiac/respiratory symptoms." Hospital Course Diagnostic findings were notable for findings of sepsis, elevated procal, CT revealing significant cellulitis of right lower extremity, MRI revealing cellulitis without evidence of abscess, osteomyelitis, myositis, or fasciitis. Patient was treated with bolus fluids and empirical antibiotics including vancomycin and ceftriaxone. Wound culture collected on 08/22/25 showed MRSA. Patient did not experience further complications throughout the entire hospital stay and made a good recovery. Margins of erythema of right lower extremity decreasing. Patient was seen and examined on the day of discharge. On day of discharge, vss and labs unremarkable. Procal downtrended. Blood cultures resulted negative. Wound culture remain preliminary. All labs, diagnostic workups, discharge plan discussed with patient in details during visit before discharge. All questions and concerns answered to the best of my professional knowledge. Patient is to be discharged to home to self and to follow-up with PCP within 2 weeks. Patient is referred to outpatient wound care clinic upon discharge. Physical Exam General: A&Ox 3, NAD HEENT: Normocephalic, PERRLA Neck: Supple, trachea midline, no JVD Chest: Clear to auscultation bilaterally Cardiovascular: RRR, S1&S2 GI: Soft and nontender Extremities: Erythema right thigh down to right lower leg with decreasing margin, two ulcerations in right lower leg WINE CONSULTANT: CN II-XII intact, no focal deficits Musculoskeletal: No paraspinal muscle tenderness, no muscle spasm Skin: Warm and intact *Problems/Diagnosis: (1) Cellulitis Status: Acute Total Time Spent on D/C: > 30 Minutes Date of Service: Sep 10, 2025 Billing Provider: DARSHAN LAWRENCE Common Visit Codes: [id number]-DYP/[id number] DISCH DAY >30min DARSHAN LAWRENCE Sep 10, 2025 14:55
== END 2025-09-10 14:24 | disposition home health service (06) | DRG 720 ==
LOC: ER 16:48 → ED HOLD 19:36 → ORTHO 4S 21:15
PROVIDERS: ADMIT Internal Medicine; ATTEND Family Medicine
DX: A41.9 Sepsis, unspecified organism (principal); N17.0 Acute kidney failure with tubular necrosis; L03.115 Cellulitis of right lower limb; J45.909 Unspecified asthma, uncomplicated; I10 Essential (primary) hypertension; E86.0 Dehydration; F41.9 Anxiety disorder, unspecified; F17.210 Nicotine dependence, cigarettes, uncomplicated; F10.10 Alcohol abuse, uncomplicated; F15.90 Other stimulant use, unspecified, uncomplicated; F11.90 Opioid use, unspecified, uncomplicated; Z79.899 Other long term (current) drug therapy; Z88.8 Allergy status to other drugs, medicaments and biological substances; Z71.6 Tobacco abuse counseling
CPT/HCPCS: 36415; 71046; 71250; 73700; 73720; 73723; 80048; 80053; 80076; 80202; 82948; 83605; 83735; 84145; 84484; 85007; 85025; 85027; 85651; 87040; 87070; 87075; 87081; 87102; 94640; 94760; 96365; 96368; 97116; 97161; 99285; A4649; A6196; A6213; A6253; A6258; A6446; A6449; G0378; J0696; J1644; J2270; J3373; J3375; J7030; J7120; Q0163

== ENCOUNTER → 2025-09-17 | Emergency (ER) | payer MEDICAID ==
[~2025-09-17] VITALS: Ht 170.2 cm; Wt 85.0 kg
[~2025-09-17] MED LIST changes: -AMOX-580 PO; -HYDR-3965 PO; +LINE600T14 PO; -LISI2.5T14 PO; -OXYC1TAB17 PO; +SULF1TAB49 PO; +thiamine tablet PO
[2025-09-17 15:22] VITALS: BP 141/82; PULSE 113; RESP 18; TEMP 97.9; O2SAT 97
--- NOTE | 2025-09-17 17:03 | RADIOLOGY REPORT ---
EXAM: DI CHEST,SINGLE VIEW HISTORY: ABSCESS COMPARISON: DI CHEST,SINGLE VIEW on DOS: 09/03/25, DI CHEST,SINGLE VIEW on DOS: 08/20/25, DI CHEST,SINGLE VIEW on DOS: 08/19/25, DI CHEST,SINGLE VIEW on DOS: 07/05/25 TECHNIQUE: PA upright view of the chest was performed. FINDINGS: No pneumothorax, consolidative infiltrates, or pulmonary edema. There is central peribronchial thickening, improved compared with prior chest x-ray. The heart is not enlarged. There are postoperative changes ACDF, not fully imaged here. There is mild thoracic spondylosis. There is slight thoracic dextroscoliosis. IMPRESSION: 1. Mild reactive airways disease. 2. The lungs are otherwise clear.
[2025-09-17 17:13] LABS: MEAN PLATELET VOLUME 6.9 FL (7.4-10.4); RED CELL DISTRIBUTION WIDTH 13.7 % (11.5-14.5)
[2025-09-17 17:25] LABS: CREATININE 0.90 MG/DL (0.60-1.10); TOTAL CARBON DIOXIDE 28.6 MMOL/L (24-32); eCRCL 86 ML/MIN; eGFR 87 ML/MIN
== END | disposition left against medical advice (07) ==
LOC: ER 15:16
DX: L02.415 Cutaneous abscess of right lower limb (principal); Z53.21 Procedure and treatment not carried out due to patient leaving prior to being seen by health care provider; Z88.8 Allergy status to other drugs, medicaments and biological substances
CPT/HCPCS: 36415; 71045; 80048; 83605; 84145; 85025; 87040; 99281

== ENCOUNTER 2025-09-18 09:48 | Emergency (ER) | payer MEDICAID ==
[~2025-09-18] VITALS: Ht 167.6 cm; Wt 85.0 kg
[~2025-09-18 09:48] MED LIST changes: -SULF1TAB49 PO
[2025-09-18 10:01] VITALS: TEMP 97.9
--- NOTE | 2025-09-18 10:22 | Physician Documentation ---
History of Present Illness ~ Chief Complaint: Wound Stated Complaint: MED REQUEST Time Seen by MD: 10:11 Source: patient, old records HPI This is a 55-year-old male who presents back to the emergency department due to pain and swelling to his right upper leg, patient was seen for the same yesterday however eloped prior to treatment. Patient reports that he was recently hospitalized for cellulitis to the area and the redness and swelling has persistent since discharge, however he does report pain, swelling, and redness has decreased from prior to being admitted. Review of records indicate patient has seen yesterday and labs obtained, these labs did not demonstrate evidence of significant infection with no elevated WBCs. Review of previous hospitalization records indicate patient was treated with the vancomycin for MRSA and discharged prior to wound culture culture and sensitivity, culture and sensitivity indicates susceptibility to Bactrim and vancomycin. Tetanus within 5 years?: Yes Medication Reconciliation Allergies: Coded Allergies: promethazine (Verified Allergy, Unknown, 09/18/25) Scheduled Fluoxetine Hcl (Prozac), 1 CAP PO DAILY, (Reported) Lidocaine (Lidoderm), 1 PATCH TOP DAILY Linezolid (Linezolid), 1 TAB PO Q12H Lisinopril (Lisinopril), 1 TAB PO DAILY, (Reported) Naproxen (Naproxen), 1 TAB PO Q12H Sulfamethoxazole/Trimethoprim (Bactrim Ds Tablet), 1 TAB PO Q12H [peg/tetrahydrozoline], 1 DROP EACHEYE Q6H, (Reported) [thiamine tablet], 100 MG PO DAILY Past Medical History Past Medical History: Hypertension, Asthma Past Surgical History: orthopedic surgeries, other Alcohol Use: Heavy Drug Use: methamphetamine, cocaine, heroin Lives with: Alone Lives In: Homeless Occupation: unemployed Review of Systems ROS As stated above in the HPI, otherwise all systems are reviewed and negative. Physical Exam Vital Signs: Temperature: 97.9, Source: Temporal, Heart Rate: 95, Respiratory Rate: 18, BP: 165/98, Pulse Oximetry: 100, Weight: 85.000 Physical Exam VITALS: Reviewed and as above. GENERAL: Alert, nontoxic appearing, no apparent distress. RESPIRATORY: No increased work of breathing, no respiratory distress, speaking in full clear sentences SKIN: 8 cm x 5 cm area of erythema and induration to upper right rodriguez with an small open area of purulence without fluctuance Progress Results/Orders Results/Orders Vital Signs 09/18/25 09/18/25 10:01 11:39 Temp 97.9 Pulse 95 81 Resp 18 18 B/P (MAP) 165/98 145/93 Pulse Ox 100 99 Medical Decision Making Additional information obtaine: old records Findings This 55-year-old male presented with a persistent erythema and swelling to his right upper rodriguez following hospitalization for MRSA cellulitis. Review of records indicate patient has seen yesterday and labs obtained, these labs did not demonstrate evidence of significant infection with no elevated WBCs. Review of previous hospitalization records indicate patient was treated with the vancomycin for MRSA and discharged prior to wound culture culture and sensitivity, culture and sensitivity indicates susceptibility to Bactrim and vancomycin. It was reassuring patient reported that he had improved during hospitalization however symptoms do persist. Additionally reassuring patient reported no fever and physical exam did not demonstrate evidence of deeper tissue infection or abscess. Patient is otherwise well-appearing and appropriate for continued outpatient management, patient to be discharged on course of Bactrim based on culture results. Patient provided home care instructions, return to care precautions, and follow up instructions which he verbalized understanding of. Differential Dx:Considerations: Include: Abscess, Cellulitis, Dressing change, Healing wound, Other (Necrotizing fasciitis) Departure Time of Disposition: 11:17 Disposition: 01 HOME / SELF CARE / HOMELESS Impression: Primary Impression: Cellulitis Qualified Codes: L03.115 - Cellulitis of right lower limb Condition: Improved Discharge Instructions: Cellulitis, Adult, [id number] Additional Instructions: Please take the antibiotics as prescribed, do not take your lisinopril while taking the antibiotic, after finishing your antibiotics resume your lisinopril. Keep the area clean dry and covered. Please follow up with your primary care provider in the next few days. Please return to the emergency department for a ny new or worsening concerning symptoms. Referrals: NO PRIMARY CARE PROVIDER (PCP) Prescriptions Sulfamethoxazole/Trimethoprim (Bactrim Ds Tablet) 800 Mg-160 Mg Tablet 1 TAB PO Q12H for 10 Days, #20 TAB Prov: LANA ROPER 09/18/25 Education Educated: Patient Educated regarding: diagnosis, treatment, prognosis, need for follow up Signature Scribe Signature: No scribe Attestation: The note accurately reflects work and decisions made by me.DENIS Penaloza 09/18/25 20:36 LANA ROPER Sep 18, 2025 10:22
[2025-09-18] MEDS ORDERED: SULF1TAB49 PO (11:25)
[2025-09-18 11:39] VITALS: BP 145/93; PULSE 81; RESP 18; O2SAT 99
== END 2025-09-18 11:40 | disposition home or self-care (01) ==
LOC: ER 09:49
DX: L03.115 Cellulitis of right lower limb (principal); J45.909 Unspecified asthma, uncomplicated; I10 Essential (primary) hypertension; F15.90 Other stimulant use, unspecified, uncomplicated; F14.90 Cocaine use, unspecified, uncomplicated; F11.90 Opioid use, unspecified, uncomplicated; Z88.8 Allergy status to other drugs, medicaments and biological substances; Z79.899 Other long term (current) drug therapy; Z59.00 Homelessness unspecified; Z56.0 Unemployment, unspecified; Z60.2 Problems related to living alone
CPT/HCPCS: 99284

== ENCOUNTER 2025-09-27 14:11 | Emergency (ER) | payer MEDICAID ==
[~2025-09-27] VITALS: Ht 167.6 cm; Wt 82.0 kg
[~2025-09-27 14:11] MED LIST changes: +SULF1TAB49 PO
[2025-09-27 14:25] VITALS: BP 147/93; PULSE 102; RESP 16; TEMP 97.6; O2SAT 98
== END 2025-09-27 15:32 | disposition left against medical advice (07) ==
LOC: ER 14:11
DX: M25.561 Pain in right knee (principal); Z53.21 Procedure and treatment not carried out due to patient leaving prior to being seen by health care provider
CPT/HCPCS: 99281

== ENCOUNTER 2025-10-07 22:44 | Emergency (ER) | payer MEDICAID ==
[~2025-10-07] VITALS: Ht 165.1 cm; Wt 83.9 kg
[~2025-10-07 22:44] MED LIST changes: -NAPR-56 PO; -SULF1TAB49 PO
--- NOTE | 2025-10-07 23:34 | Physician Documentation ---
HPI ~ General Chief Complaint: Medication Request Stated Complaint: REQUESTING DETOX Time Seen by MD: 23:00 History of Present Illness HPI Comments This is a 55-year-old male with a history of opioid abuse who presents requesting Suboxone and referral for rehab for opioid abuse. Patient reports no recent opioid use though reports cravings. Patient reports methamphetamine use yesterday. Patient reports no other acute symptoms or concerns. Medication Reconciliation Allergies: Coded Allergies: No Known Allergies (Unverified , 09/27/25) Scheduled Buprenorphine Hcl/Naloxone Hcl (Suboxone 8 Mg-2 Mg Sl Film), 1 STRIP SL BID Fluoxetine Hcl (Prozac), 1 CAP PO DAILY, (Reported) Lidocaine (Lidoderm), 1 PATCH TOP DAILY Linezolid (Linezolid), 1 TAB PO Q12H Lisinopril (Lisinopril), 1 TAB PO DAILY, (Reported) Naloxone HCl (Narcan), 1 SPRAYS BOTHNARES ONCE [peg/tetrahydrozoline], 1 DROP EACHEYE Q6H, (Reported) [thiamine tablet], 100 MG PO DAILY Discontinued Medications Naproxen (Naproxen), 1 TAB PO Q12H Discontinued Reason: Auto Discontinued Past Medical History Past Medical History: Hypertension, Asthma Past Surgical History: orthopedic surgeries, other Alcohol Use: Heavy Drug Use: methamphetamine, cocaine, heroin Lives with: Alone Lives In: Homeless Occupation: unemployed Review of Systems ROS As stated above in the HPI, otherwise all systems are reviewed and negative. Physical Exam Physical Exam Vital Signs: Temperature: 98.2, Heart Rate: 102, Respiratory Rate: 18, BP: 1 59/99, Pulse Oximetry: 97, Weight: 83.900 Oxygen Flow Rate: 0 Physical Exam VITALS: Reviewed and as above. GENERAL: Alert, nontoxic appearing, no apparent distress. RESPIRATORY: No increased work of breathing, no respiratory distress, speaking in full clear sentences Progress Results/Orders Results/Orders Orders - LANA ROPER Substance Use Navigator (10/07/25 23:37) Completed Orders - LANA ROPER Buprenorphine/Naloxone Sl Film (Suboxone (10/07/25 23:40) Medications Received in ER Medications (Trade) Dose Ordered Sig/Michelle Route PRN Reason Start Time Stop Time Status Last Admin Dose Admin (Suboxone 8MG-2MG SL film) 1 film ONCE ONCE SL 10/07/25 23:40 10/07/25 23:41 DC 10/07/25 23:43 1 FILM Vital Signs 10/07/25 10/07/25 22:47 23:47 Temp 98.2 98.6 Pulse 102 99 Resp 18 20 B/P (MAP) 159/99 155/95 Pulse Ox 97 99 O2 Flow Rate 0 Medical Decision Making Additional information obtaine: N/A Findings This 55-year-old male presented requesting assistance with opiate abuse requesting Suboxone due to cravings for opioid use, he has not had any recent opioid use though use in the last 24 hours. It is reassuring patient reports no other acute symptoms or concerns and he reports ability to follow up with local clinic for resources. Patient will be prescribed a two week supply of Suboxone and a referral made made to the [facility] substance use navigator. Patient is otherwise well-appearing with no other acute symptoms or concerns and benign physical exam in his appropriate for outpatient follow up. Patient provided follow up instructions return to care precautions and home care instructions which he verbalized understanding of. Care Threads database checked prior to prescribing. Differential Dx:Considerations: Include: Adverse circumstances, Economic, Psychosocial, Medical services unavail., Other (Opioid abuse, methamphetamine abuse, intoxication) Departure Time of Disposition: 23:33 Disposition: 01 HOME / SELF CARE / HOMELESS Impression: Primary Impression: History of opioid abuse Condition: Improved Discharge Instructions: Opioid Withdrawal Treatment Additional Instructions: Please use the medication as prescribed. Follow up as soon as possible with her primary care provider to manage this medication in the future, see the [facility] or other clinic for resources to get connected with the treatment program. Our substance use navigator may also reach out to you with resources for substance use recovery. Please follow up with your primary care provider in the next few days. Please return to the emergency department for any new or worsening concerning symptoms. Referrals: NO PRIMARY CARE PROVIDER (PCP) Prescriptions Naloxone HCl (Narcan) 4 Mg/Actuation [place] 1 SPRAYS BOTHNARES ONCE for 1 Day, #1 EA 0 Refills Prov: LANA ROPER [facility] 10/07/25 Buprenorphine Hcl/Naloxone Hcl (Suboxone 8 Mg-2 Mg Sl Film) 8 Mg-2 Mg Film 1 STRIP SL BID for 14 Days, #28 STRIP Prov: LANA ROPER [facility] 10/07/25 Education Educated: Patient Educated regarding: diagnosis, treatment, prognosis, need for follow up Signature Scribe Signature: No scribe Attestation: The note accurately reflects work and decisions made by me.DENIS Penaloza 10/08/25 00:24 LANA ROPER Oct 07, 2025 23:34
[2025-10-07] MEDS ORDERED: BUPR1FIL3 SL (23:36)
[2025-10-07] MEDS ORDERED: NALO4SPR BOTHNARES (23:36)
[2025-10-07] MEDS: buprenorphine/naloxone 8MG-2MG SUBlingual film SL ONE (23:43)
[2025-10-07 23:47] VITALS: BP 155/95; PULSE 99; RESP 20; TEMP 98.6; O2SAT 99
== END 2025-10-07 23:48 | disposition home or self-care (01) ==
LOC: ER 22:45
DX: F11.10 Opioid abuse, uncomplicated (principal); F15.90 Other stimulant use, unspecified, uncomplicated; I10 Essential (primary) hypertension; J45.909 Unspecified asthma, uncomplicated; F14.90 Cocaine use, unspecified, uncomplicated; Z79.899 Other long term (current) drug therapy; Z56.0 Unemployment, unspecified; Z59.00 Homelessness unspecified; Z98.890 Other specified postprocedural states
CPT/HCPCS: 99283

== ENCOUNTER 2025-11-02 11:56 | Emergency (ER) | payer MEDICAID ==
[~2025-11-02] VITALS: Ht 167.6 cm; Wt 82.9 kg
[~2025-11-02 11:56] MED LIST changes: +NALO4SPR BOTHNARES
[2025-11-02 12:15] VITALS: BP 143/83; PULSE 97; RESP 16; O2SAT 95
[2025-11-02] MEDS ORDERED: BUPR1FIL3 SL (13:13)
--- NOTE | 2025-11-02 13:14 | Physician Documentation ---
HPI ~ General Chief Complaint: Medication Refill Stated Complaint: MED REQUEST Time Seen by MD: 12:29 OK to notify your PCP?: Yes [facility] Mode of Arrival: POV Exam Limitations: no limitations History of Present Illness HPI Comments Requesting 8 mg Suboxone film. Reports ran out yesterday did have a morning dose but did not have an evening dose. He denies having any withdrawal symptoms. He reports that he has an upcoming appointment this next week with [facility]. Medication Reconciliation Allergies: Coded Allergies: No Known Allergies (Unverified , 11/02/25) Scheduled Buprenorphine Hcl/Naloxone Hcl (Suboxone 8 Mg-2 Mg Sl Film), 1 STRIP SL BID Fluoxetine Hcl (Prozac), 1 CAP PO DAILY, (Reported) Lidocaine (Lidoderm), 1 PATCH TOP DAILY Linezolid (Linezolid), 1 TAB PO Q12H Lisinopril (Lisinopril), 1 TAB PO DAILY, (Reported) Naloxone HCl (Narcan), 1 SPRAYS BOTHNARES ONCE [peg/tetrahydrozoline], 1 DROP EACHEYE Q6H, (Reported) [thiamine tablet], 100 MG PO DAILY Past Medical History Past Medical History: Hypertension, Asthma Past Surgical History: orthopedic surgeries, other Alcohol Use: Heavy Drug Use: methamphetamine, cocaine, heroin Lives with: Alone Lives In: Homeless Occupation: unemployed Physical Exam Physical Exam Vital Signs: RN Vital Signs have been reviewed: Yes, Temperature: 97.2, Source: Temporal, Heart Rate: 97, Respiratory Rate: 16, BP: 143/83, Pulse Oximetry: 95, Weight: 82.900 Oxygen Flow Rate: 0 Pulse Oximetry Reflects: adequate oxygenation Physical Exam General: Alert, no distress. HEENT: No injection, moist mucous membranes. Neck: Full range of motion. Respiratory: No respiratory distress, equal chest rise and fall. Chest: No accessory muscle use. Cardiovascular: Regular rate and rhythm. Gastrointestinal: Nondistended. Extremities: Normal range of motion, no deformity. Neurologic: Oriented x4. Psychiatric: Normal mood and affect. Skin: Normal color, warm and dry. Progress Results/Orders Reviewed/noted all lab results: Yes Results/Orders Medications Received in ER Medications (Trade) Dose Ordered Sig/Michelle Route PRN Reason Start Time Stop Time Status Last Admin Dose Admin (Suboxone 8MG-2MG SL film) 1 film ONCE ONCE SL 11/02/25 13:15 11/02/25 13:16 DC 11/02/25 13:24 1 FILM Vital Signs 11/02/25 11/02/25 12:15 13:27 Temp 97.2 97.2 Pulse 97 Resp 16 B/P (MAP) 143/83 Pulse Ox 95 O2 Flow Rate 0 Medical Decision Making Additional information obtaine: old records Findings Requesting refill of Suboxone 8mg film. Denies any withdrawal symptoms. Complaint of his regular doctor next week. I gave him a 1 time dose here in the department as well as sent a prescription for Suboxone 8 mg twice daily for 3 da ys. Differential Dx:Considerations: Include: Adverse circumstances, Economic, Psychosocial, Medical services unavail., Medication refill, Medication non- compliance Departure Disposition: 01 HOME / SELF CARE / HOMELESS Impression: Primary Impression: General medical exam Additional Impression: Pain Condition: Stable Discharge Instructions: Medicine Refill at the Emergency Department Additional Instructions: Continue with appointment with your regular doctor next week. Return back here for any new or worsening symptoms. Referrals: NO PRIMARY CARE PROVIDER (PCP) Prescriptions Buprenorphine Hcl/Naloxone Hcl (Suboxone 8 Mg-2 Mg Sl Film) 8 Mg-2 Mg Film 1 STRIP SL BID for 3 Days, #6 STRIP Prov: PITA BURROWS PASSPORT SUPPORT MANAGER 11/02/25 Education Educated: Patient Educated regarding: diagnosis, treatment, prognosis, need for follow up Additional Comment Medical Screen Exam This patient recieved a medical screening examination. After reviewing the i ndividual's medical complaints with presenting symptoms and performing an appropriate physical examination, it was determined that no immediate life- threatening emergency medical condition is present. This individual is also not a women having contractions. I have reviewed this case [id number] with the PASSPORT SUPPORT MANAGER, including physical examination, laboratory and imaging results as appropriate. The patient was evaluated [id number] and I agree with the PASSPORT SUPPORT MANAGER's notes. I agree with the findings, evaluation and disposition. Signature Scribe Signature: . Attestation: Scribed for Pita Burrows Switch Maker by Pita Reynoso NP . 11/02/25 13:16 Parts of this note were created using [employer] voice recognition software program. While efforts were made to correct any mistakes made by this voice recognition software program, nonsensical phrases may remain in this note. In addition, there may be errors and syntax, grammar, content and spelling. PITA BURROWS Nov 02, 2025 13:14 HENRY NIÑO MD Nov 02, 2025 18:33
[2025-11-02] MEDS: buprenorphine/naloxone 8MG-2MG SUBlingual film SL ONE (13:24)
[2025-11-02 13:27] VITALS: TEMP 97.2
== END 2025-11-02 13:29 | disposition home or self-care (01) ==
LOC: ER 11:56
DX: Z00.00 Encounter for general adult medical examination without abnormal findings (principal); I10 Essential (primary) hypertension; J45.909 Unspecified asthma, uncomplicated; F15.90 Other stimulant use, unspecified, uncomplicated; F11.90 Opioid use, unspecified, uncomplicated; F14.90 Cocaine use, unspecified, uncomplicated; F10.90 Alcohol use, unspecified, uncomplicated; Y90.9 Presence of alcohol in blood, level not specified
CPT/HCPCS: 99283